=== PATIENT | male | born 1950 | race Caucasian/White ===

== ENCOUNTER 2017-08-28 18:35 | Emergency (ER) | payer MEDICARE, MEDICAID ==
[2017-08-28 18:43] VITALS: BP 235/86
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
[2017-08-28] MEDS ORDERED: NS 0.9% 1000 ML* 1,000 ML IV ONE (19:06)
--- OUTSIDE RECORDS SUMMARY | 2017-08-28 19:13 | XMS REPORT ---
:1950 External Reference #:[id number] Author Organization [facility] Address [address] [facility]/[address] [place] [address] Phone [phone] Care Team Providers Name Role Phone Mariya Betancourt MD Care Team Information Technical Support Director Unavailable Payers Type Date Identification Numbers Payment Provider Subscriber Medicare Primary Policy Number: [id number] Medicare Billy Barber PayID: [id number] [address] [place] [address] Medigap Part B Policy Number: [id number] Medicaid/[employer] Billy Barber PayID: [id number] [address] [place] [address] Problems Date Description Provider Status Onset: 09/22/2011 Benign essential hypertension Mariya Betancourt M.D. Active Onset: 09/22/2011 Mixed hyperlipidemia Mariya Betancourt M.D. Active Onset: 09/22/2011 Malaise and fatigue Mariya Betancourt M.D. Active Onset: 09/22/2011 Anxiety state Mariya Betancourt M.D. Active Onset: 09/22/2011 Type II diabetes mellitus uncontrolled Mariya Betancourt M.D. Active Onset: 09/22/2011 Chronic pancreatitis Mariya Betancourt M.D. Active Onset: 09/22/2011 Tobacco user Mariya Betancourt M.D. Active Onset: 09/22/2011 Depressive disorder Mariya Betancourt M.D. Active Onset: 09/22/2011 Peptic reflux disease Michael Motnoya [facility] Active Onset: 09/22/2011 Disease of liver Mariya Betancourt M.D. Active Onset: 09/22/2011 Arthralgia of the lower leg Mariya Betancourt M.D. Active Onset: 09/22/2011 Headache Michael Montoya [employer] Active Onset: 09/22/2011 Alcohol abuse Mariya Betancourt M.D. Active Onset: 09/21/2012 Osteoarthritis Mariya Betancourt M.D. Active Onset: 11/23/2012 Allergic rhinitis Mariya Betancourt M.D. Active Onset: 01/27/2014 Polyp of colon Sarah Lopez FNP Active Onset: 10/31/2014 Hearing loss Mariya Betancourt M.D. Active Onset: 04/03/2015 Essential hypertension Mariya Betancourt M.D. Active Onset: 04/03/2015 Major depressive disorder, single Mariya Betancourt M.D. Active episode, unspecified Onset: 04/03/2015 Alcohol abuse, uncomplicated Mariya Betancourt M.D. Active Onset: 05/01/2015 Essential hypertension Mariya Betancourt M.D. Active Family History Date Family Member(s) Problem(s) Comments Father due to Stomach Cancer () Father due to at age 83 () Mother healthy Mother 83 Children 2 First Son 39 First Son No Current Problems Second Son 37 Second Son No Current Problems Siblings 4 First Brother 60 First Brother No Current Problems Second Brother 56 Second Brother No Current Problems Third Brother 53 Third Brother No Current Problems First Sister 55 First Sister No Current Problems Social History Type Date Description Comments Marital Status Legal Status: Cigarette Use Current Cigarette Smoker pt has been smoking about 5 cigarettes a day since age 15 ETOH Use Currently consumes alcohol QUIT DRINKING 15 MONTHS AGO OF 05/27/17 Smoking Patient is a current smoker, smokes every day Daily Caffeine Consumes on average 1 cup of regular coffee per day Allergies, Adverse Reactions, Alerts Date Description Reaction Status Severity Comments 10/09/2011 NKDA active Medications Medication Date Status Form Strength Qnty SIG Indications Ordering Provider Celecoxib 08/29/ Active Capsules 100mg 180cap 1 cap by M25.511 Serafin, 2017 s mouth Mariya Hoskins, twice a M.D. day Polyethylene 02/27/ Active Powder 3350NF 1054un use 1-2 K59.00 Serafin, Glycol 3350 2015 its capfuls Ahmabruce MJessica, by mouth M.D. every day Spironolactone 01/16/ Active Tablets 25mg 90tabs take one R60.0 Serafin, 2016 tablet by Mariya Hoskins, mouth M.D. once daily K70.30 Folic Acid 03/01/2014 Active Tablets 400mcg 100tabs take one D52.0 Serafin, tablet by Mariya Etienne., mouth once M.D. daily Magnesium Oxide 03/01/2014 Active Tablets 400mg 90tabs take one R79.89 Serafin, tablet by Mariya Hoskins, mouth once M.D. daily K21.0 Lipitor 04/20/2013 Active Tablets 80mg 90tabs take one tablet E78.2 Serafin, Mariya Hoskins, by mouth at M.D. bedtime E11.65 I10 Omeprazole 12/24/[address] 40mg 90caps take one K21.0 Serafin, capsule Ahmad by mouth M., M.D. once daily Clonidine HCL 10/10/2011 Active Tablets 0.3mg 180tabs 1 by I10 Serafin, mouth Ahmad twice a M., M.D. day Fenofibrate 10/10/2011 Active Capsules 134mg 90caps take one E78.2 Serafin, Micronized capsule Ahmad by mouth M., M.D. every night Atenolol 10/10/2011 Active Tablets 100mg 180tabs take one I10 Serafin, tablet by Ahmad mouth M., M.D. twice a day Cephalexin 04/07/2017 - Hx Capsules 500mg 30caps 1 by L03.313 Serafin, 04/17/2017 mouth Ahmad three M., M.D. times a day Ciprofloxacin 01/15/2017 - Hx Tablets 500mg 20tabs 1 by I10 Serafin, HCL 01/25/2017 mouth Ahmad twice a M., M.D. day Zolpidem 11/27/2016 - Hx Tablets 10mg 30tabs 1 tab by G47.00 Serafin, Tartrate 08/06/2017 mouth Ahmad every M., M.D. night at bedtime Zoloft 08/29/2016 - Hx Tablets 100mg 30tabs 1 by F41.9 Serafin, 11/03/2016 mouth Ahmad every day Jaimie.Chandler M25.511 F33.9 Ciprofloxacin HCL 11/29/2015 - Hx Tablets 500mg 20tabs 1 by mouth Serafin, 12/10/2015 twice a day Ahmad M.GatoD. Prednisone 11/29/2015 - Hx Tablets 20mg 8tabs 2 tab by Serafin, 12/03/2015 mouth daily Ahmad M., 4 days M.D. Paxil 08/30/2015 - Hx Tablets 40mg 90tabs 1 tab by F41.9 Serafin, 10/07/2015 mouth every Ahmad M., day M.D. Testosterone 06/07/2015 - Hx Pellet 100mg E29.1 Serafin, 06/07/2015 Ahmad Jaimie.Chandler N64.4 N62 Testosterone 06/07/2015 - Hx Solution 200mg/ml 10ml one milliliters E29.1 Serafin, Cypionate 08/06/2015 intramuscular Ahmad M., every 2 weeks M.D. two vials code f N64.4 N62 Androgel 05/08/2015 - Hx Gel 25mg/2.5GM (1%) 75gm Apply To Clean E29.1 Serafin, 06/07/2015 Intact Ahmad M., Skin(Shoulder Or M.D. Abdomen) Q Am N64.4 N62 Venlafaxine HCL 10/31/2014 - Hx Tablets ER 150mg 90tabs 1 by mouth F41.9 Serafin, ER 08/06/2015 24HR every day Ahmad Cahndler Hoskins F32.9 Zolpidem 04/20/2014 - Hx Tablets 10mg 30tabs 1 tab by G47.00 Serafin, Tartrate 11/03/2016 mouth every Ahmad M., night at M.D. bedtime Paroxetine HCL 02/28/2014 - Hx Tablets 30mg 60tabs 1 twice a 300.00 Serafin, 10/31/2014 day Mariya Hoskins M.D. 311 Zetia 04/20/2013 - Hx Tablets 10mg 90tabs 1 [facility] every Chandler Hoskins night Liptruzet 04/14/2013 - Hx Tablets 10-80mg 30tabs 1 Tab PO 272.2 [facility] 04/20/2013 Qday Chandler Hoskins 250.02 401.1 Ritalin 11/30/2012 - Hx Tablets 20mg 30tabs 1 by mouth 780.79 [facility], 03/03/2013 every day Mariya Hoskins M.D. Amitriptyline HCL 02/25/2012 - Hx Tablets 50mg 60tabs 1 by mouth at 300.00 John, 03/13/2014 bedtime for 2 Sarah, weeks, then [employer] discontinue medication 311 Amoxicillin 01/13/2012 - Hx Capsules 500mg 30caps 1 three 382.9 [facility]2012 times a day Chandler Hoskins x 10 days 466.0 461.8 Prevacid 10/10/2011 - Hx Capsules DR 15mg 1 by mouth [facility] 12/24/2011 every day Chandler Hoskins Lotrel 10/10/2011 - Hx Capsules 10-40mg 180caps 1 cap by I10 Serafin [facility] 06/02/2016 mouth twice Chandler Hoskins a day E11.65 Hydralazine HCL 10/10/2011 - Hx Tablets 25mg 90tabs 1 PO tid 401.1 Serafin, 09/08/2013 Mariya Hoskins M.D. Tegretol 10/10/2011 - Hx Tablets 200mg 60tabs 1 twice a 300.00 Serafin, 10/04/2013 day Mariya Hoskins M.D. 305.00 Paroxetine HCL 10/10/2011 - Hx Tablets 30mg 60tabs 1 twice a 300.00 [facility] 10[facility] day Chandler Hoskins 311 Vytorin 10/10/2011 - Hx Tablets 10-40mg 30tabs 1 at 272.2 [facility], 04/14/2013 bedtime Mariya Hoskins M.D. Nortriptyline HCL 10/10/2011 - Hx Capsules 50mg 60caps 1 twice a 300.00 Serafin, 09/08/2013 day Mariya Hoskins M.D. 305.00 311 Protonix 10/09/2011 - Hx Tablets DR 40mg 30tabs 1 by mouth 536.8 [facility] , shaneka 12/24/2011 every day Chandler Hoskins Immunizations CPT Code Status Date Vaccine Lot # [id number] Given 05/01/2015 Flu Vaccine [id number] Given 04/20/2014 Flu Vaccine [id number] Given 06/10/2012 Flu Vaccine [id number] Vital Signs Date Vital Result Comment 08/26/2017 BP Systolic 120 mmHg BP Diastolic 62 mmHg Height 67 inches 5'7" Weight 165.00 lb BMI (Body Mass Index) 25.8 kg/m2 Heart Rate 57 /min Respiratory Rate 18 /min 05/27/2017 BP Systolic 108 mmHg BP Diastolic 68 mmHg Height 67 inches 5'7" Weight 168.00 lb BMI (Body Mass Index) 26.3 kg/m2 Heart Rate 57 /min Respiratory Rate 16 /min 04/07/2017 BP Systolic 110 mmHg BP Diastolic 60 mmHg Height 67 inches 5'7" Weight 171.00 lb BMI (Body Mass Index) 26.8 kg/m2 Heart Rate 58 /min Respiratory Rate 18 /min 02/26/2017 BP Systolic 128 mmHg BP Diastolic 62 mmHg Height 67 inches 5'7" Weight 168.00 lb BMI (Body Mass Index) 26.3 kg/m2 Heart Rate 55 /min Respiratory Rate 18 /min 01/15/2017 BP Systolic 140 mmHg BP Diastolic 74 mmHg Height 67 inches 5'7" Weight 167.00 lb BMI (Body Mass Index) 26.2 kg/m2 Heart Rate 54 /min Body Temperature 97.2 F Respiratory Rate 12 /min 12/12/2016 BP Systolic 150 mmHg BP Diastolic 62 mmHg Height 67 inches 5'7" Weight 167.00 lb BMI (Body Mass Index) 26.2 kg/m2 Heart Rate 49 /min Respiratory Rate 16 /min 11/27/2016 BP Systolic 138 mmHg BP Diastolic 78 mmHg Height 67 inches 5'7" Weight 169.00 lb BMI (Body Mass Index) 26.5 kg/m2 Heart Rate 54 /min Respiratory Rate 16 /min 08/29/2016 BP Systolic 148 mmHg BP Diastolic 78 mmHg Height 67 inches 5'7" Weight 172.00 lb BMI (Body Mass Index) 26.9 kg/m2 Heart Rate 50 /min Respiratory Rate 18 /min 06/02/2016 BP Systolic 162 mmHg BP Diastolic 80 mmHg Height 67 inches 5'7" Weight 174.00 lb BMI (Body Mass Index) 27.2 kg/m2 Heart Rate 57 /min Respiratory Rate 18 /min 03/03/2016 BP Systolic 122 mmHg BP Diastolic 64 mmHg Height 67 inches 5'7" Weight 167.00 lb BMI (Body Mass Index) 26.2 kg/m2 Heart Rate 86 /min Respiratory Rate 20 /min 02/28/2016 BP Systolic 150 mmHg BP Diastolic 80 mmHg Height 67 inches 5'7" Weight 170.00 lb BMI (Body Mass Index) 26.6 kg/m2 Heart Rate 68 /min Respiratory Rate 18 /min 01/31/2016 BP Systolic 136 mmHg BP Diastolic 74 mmHg Height 67 inches 5'7" Weight 192.00 lb BMI (Body Mass Index) 30.1 kg/m2 Heart Rate 80 /min Respiratory Rate 22 /min 01/17/2016 BP Systolic 160 mmHg BP Diastolic 110 mmHg Height 67 inches 5'7" Weight 196.00 lb BMI (Body Mass Index) 30.7 kg/m2 Heart Rate 92 /min Respiratory Rate 18 /min 11/29/2015 BP Systolic 124 mmHg BP Diastolic 82 mmHg Height 67 inches 5'7" Heart Rate 62 /min Body Temperature 96.9 F 10/24/2015 BP Systolic 159 mmHg BP Diastolic 71 mmHg Height 67 inches 5'7" Weight 177.00 lb BMI (Body Mass Index) 27.7 kg/m2 Heart Rate 53 /min Respiratory Rate 18 /min 08/30/2015 BP Systolic 146 mmHg BP Diastolic 71 mmHg Height 67 inches 5'7" Weight 188.00 lb BMI (Body Mass Index) 29.4 kg/m2 Heart Rate 85 /min Respiratory Rate 18 /min 06/07/2015 BP Systolic 145 mmHg BP Diastolic 70 mmHg Height 67 inches 5'7" Weight 194.00 lb BMI (Body Mass Index) 30.4 kg/m2 Heart Rate 60 /min Respiratory Rate 18 /min 05/08/2015 BP Systolic 192 mmHg BP Diastolic 82 mmHg Height 67 inches 5'7" Weight 198.00 lb BMI (Body Mass Index) 31.0 kg/m2 Heart Rate 53 /min Respiratory Rate 18 /min 05/01/2015 BP Systolic 193 mmHg BP Diastolic 79 mmHg Height 67 inches 5'7" Weight 196.00 lb BMI (Body Mass Index) 30.7 kg/m2 Heart Rate 57 /min Respiratory Rate 18 /min 04/03/2015 BP Systolic 198 mmHg BP Diastolic 98 mmHg Height 67 inches 5'7" Weight 182.00 lb BMI (Body Mass Index) 28.5 kg/m2 Heart Rate 68 /min Respiratory Rate 18 /min 12/08/2014 BP Systolic 162 mmHg BP Diastolic 88 mmHg Height 67 inches 5'7" Weight 203.00 lb BMI (Body Mass Index) 31.8 kg/m2 Heart Rate 61 /min Respiratory Rate 18 /min 10/31/2014 BP Systolic 162 mmHg BP Diastolic 80 mmHg Height 67 inches 5'7" Weight 203.00 lb BMI (Body Mass Index) 31.8 kg/m2 Heart Rate 60 /min Respiratory Rate 18 /min 09/28/2014 BP Systolic 172 mmHg BP Diastolic 82 mmHg BP Systolic Recheck 148 mmHg BP Diastolic Recheck 80 mmHg Height 67 inches 5'7" Weight 202.00 lb BMI (Body Mass Index) 31.6 kg/m2 Heart Rate 62 /min Respiratory Rate 18 /min 05/22/2014 BP Systolic 140 mmHg BP Diastolic 92 mmHg Height 67 inches 5'7" Weight 213.00 lb BMI (Body Mass Index) 33.4 kg/m2 Heart Rate 65 /min Respiratory Rate 18 /min 04/20/2014 BP Systolic 158 mmHg BP Diastolic 84 mmHg Height 67 inches 5'7" Weight 206.00 lb BMI (Body Mass Index) 32.3 kg/m2 Heart Rate 64 /min Respiratory Rate 20 /min 03/21/2014 BP Systolic 158 mmHg BP Diastolic 92 mmHg Height 67 inches 5'7" Weight 212.00 lb BMI (Body Mass Index) 33.2 kg/m2 Heart Rate 61 /min Respiratory Rate 18 /min 03/14/2014 BP Systolic 172 mmHg BP Diastolic 78 mmHg Height 67 inches 5'7" Weight 213.00 lb BMI (Body Mass Index) 33.4 kg/m2 Heart Rate 61 /min Respiratory Rate 18 /min 02/28/2014 BP Systolic 140 mmHg BP Diastolic 74 mmHg Height 67 inches 5'7" Weight 213.00 lb BMI (Body Mass Index) 33.4 kg/m2 Heart Rate 62 /min Respiratory Rate 18 /min 01/19/2014 BP Systolic 154 mmHg BP Diastolic 88 mmHg Height 67 inches 5'7" Weight 212.00 lb BMI (Body Mass Index) 33.2 kg/m2 Heart Rate 65 /min Respiratory Rate 22 /min 10/28/2013 BP Systolic 130 mmHg BP Diastolic 70 mmHg Height 67 inches 5'7" Weight 211.00 lb BMI (Body Mass Index) 33.0 kg/m2 Heart Rate 65 /min Body Temperature 97.2 F Respiratory Rate 18 /min 09/28/2013 BP Systolic 157 mmHg BP Diastolic 86 mmHg Height 67 inches 5'7" Weight 208.00 lb BMI (Body Mass Index) 32.6 kg/m2 Heart Rate 92 /min Respiratory Rate 20 /min 09/08/2013 BP Systolic 114 mmHg BP Diastolic 67 mmHg Height 67 inches 5'7" Weight 212.00 lb BMI (Body Mass Index) 33.2 kg/m2 Heart Rate 69 /min Respiratory Rate 20 /min 08/17/2013 BP Systolic 176 mmHg BP Diastolic 80 mmHg Height 67 inches 5'7" Weight 208.00 lb BMI (Body Mass Index) 32.6 kg/m2 Heart Rate 70 /min Respiratory Rate 24 /min 05/17/2013 BP Systolic 136 mmHg BP Diastolic 71 mmHg Height 67 inches 5'7" Weight 208.00 lb BMI (Body Mass Index) 32.6 kg/m2 Heart Rate 74 /min Body Temperature 97.8 F Respiratory Rate 22 /min 04/14/2013 BP Systolic 152 mmHg BP Diastolic 77 mmHg Height 67 inches 5'7" Weight 216.00 lb BMI (Body Mass Index) 33.8 kg/m2 Heart Rate 62 /min Respiratory Rate 22 /min 04/07/2013 BP Systolic 153 mmHg BP Diastolic 82 mmHg Height 67 inches 5'7" Weight 216.00 lb BMI (Body Mass Index) 33.8 kg/m2 Heart Rate 79 /min 03/03/2013 BP Systolic 128 mmHg BP Diastolic 66 mmHg Height 67 inches 5'7" Weight 211.00 lb BMI (Body Mass Index) 33.0 kg/m2 Heart Rate 70 /min Respiratory Rate 18 /min 11/30/2012 BP Systolic 144 mmHg BP Diastolic 70 mmHg Height 67 inches 5'7" Weight 206.00 lb BMI (Body Mass Index) 32.3 kg/m2 Heart Rate 73 /min Respiratory Rate 20 /min 11/23/2012 BP Systolic 120 mmHg BP Diastolic 64 mmHg Height 67 inches 5'7" Weight 210.00 lb BMI (Body Mass Index) 32.9 kg/m2 Heart Rate 78 /min Respiratory Rate 20 /min 09/21/2012 BP Systolic 160 mmHg BP Diastolic 88 mmHg Height 67 inches 5'7" Weight 205.00 lb BMI (Body Mass Index) 32.1 kg/m2 Heart Rate 78 /min Respiratory Rate 12 /min 09/14/2012 BP Systolic 148 mmHg BP Diastolic 80 mmHg Height 67 inches 5'7" Weight 208.00 lb BMI (Body Mass Index) 32.6 kg/m2 Heart Rate 67 /min Body Temperature 96.9 F Respiratory Rate 18 /min 06/10/2012 BP Systolic 120 mmHg BP Diastolic 74 mmHg Height 67 inches 5'7" Weight 203.00 lb BMI (Body Mass Index) 31.8 kg/m2 Heart Rate 69 /min Respiratory Rate 20 /min 04/19/2012 BP Systolic 170 mmHg BP Diastolic 88 mmHg Height 67 inches 5'7" Weight 190.00 lb BMI (Body Mass Index) 29.8 kg/m2 Heart Rate 72 /min Respiratory Rate 24 /min 03/31/2012 BP Systolic 145 mmHg BP Diastolic 77 mmHg Height 67 inches 5'7" Weight 220.00 lb BMI (Body Mass Index) 34.5 kg/m2 Heart Rate 75 /min Last Menstrual Period 0 Respiratory Rate 15 /min 02/19/2012 BP Systolic 144 mmHg BP Diastolic 67 mmHg Height 67 inches 5'7" Weight 220.00 lb BMI (Body Mass Index) 34.5 kg/m2 Heart Rate 76 /min Last Menstrual Period 0 Respiratory Rate 14 /min 02/05/2012 BP Systolic 145 mmHg BP Diastolic 76 mmHg Height 67 inches 5'7" Weight 220.00 lb BMI (Body Mass Index) 34.5 kg/m2 Heart Rate 80 /min Last Menstrual Period 0 Respiratory Rate 15 /min 01/13/2012 BP Systolic 150 mmHg BP Diastolic 92 mmHg Height 67 inches 5'7" Weight 200.00 lb BMI (Body Mass Index) 31.3 kg/m2 Heart Rate 90 /min Last Menstrual Period 0 Respiratory Rate 16 /min 11/04/2011 BP Systolic 136 mmHg BP Diastolic 76 mmHg Height 67 inches 5'7" Weight 194.00 lb BMI (Body Mass Index) 30.4 kg/m2 Heart Rate 70 /min Last Menstrual Period 0 Respiratory Rate 15 /min 10/28/2011 BP Systolic 150 mmHg BP Diastolic 87 mmHg Height 67 inches 5'7" Weight 198.00 lb BMI (Body Mass Index) 31.0 kg/m2 Heart Rate 78 /min Last Menstrual Period 0 Respiratory Rate 14 /min 10/09/2011 BP Systolic 137 mmHg BP Diastolic 76 mmHg Height 67 inches 5'7" Weight 199.00 lb BMI (Body Mass Index) 31.2 kg/m2 Heart Rate 64 /min Last Menstrual Period 0 Respiratory Rate 15 /min Results Test Date Test Result H/L Range Note CBC Auto Diff 05/27/2017 White Blood Count 6.4 10^3/uL 3.5-10.8 Red Blood Count 4.41 10^6/uL 4.0-5.4 Hemoglobin 13.3 g/dL Low 14.0-18.0 Hematocrit 40 % Low 42-52 Mean Corpuscular Volume 91 fL 80-94 Mean Corpuscular Hemoglobin 30 pg 27-31 Mean Corpuscular HGB Conc 33 g/dL 31-36 Red Cell Distribution Width 14 % 10.5-15 Platelet Count 257 10^3/uL 150-450 Mean Platelet Volume 9 um3 7.4-10.4 Abs Neutrophils 3.0 10^3/uL 1.5-7.7 Abs Lymphocytes 2.5 10^3/uL 1.0-4.8 Abs Monocytes 0.6 10^3/uL 0-0.8 Abs Eosinophils 0.3 10^3/uL 0-0.6 Abs Basophils 0.1 10^3/uL 0-0.2 Abs Nucleated RBC 0 10^3/uL Granulocyte % 46.8 % 38-83 Lymphocyte % 38.7 % 25-47 Monocyte % 8.9 % 1-9 Eosinophil % 4.6 % 0-6 Basophil % 1.0 % 0-2 Nucleated Red Blood Cells % 0.1 Comp Metabolic Panel 05/27/2017 Sodium 136 mmol/L 133-145 Potassium 4.1 mmol/L 3.5-5.0 Chloride 102 mmol/L 101-111 Co2 Carbon Dioxide 28 mmol/L 22-32 Anion Gap 6 mmol/L 2-11 Glucose 132 mg/dL High 70-100 Blood Urea Nitrogen 29 mg/dL High 6-24 Creatinine 1.44 mg/dL High 0.67-1.17 BUN/Creatinine Ratio 20.1 High 8-20 Calcium 10.1 mg/dL 8.6-10.3 Total Protein 7.2 g/dL 6.4-8.9 Albumin 4.5 g/dL 3.2-5.2 Globulin 2.7 g/dL 2-4 Albumin/Globulin Ratio 1.7 1-3 Total Bilirubin 0.70 mg/dL 0.2-1.0 Alkaline Phosphatase 74 U/L 34-104 Alt 10 U/L 7-52 Ast 19 U/L 13-39 Egfr Non- 49.1 >60 Egfr 63.1 >60 1 Lipid Profile (Trig/Chol/HDL) 05/27/2017 Triglycerides 73 mg/dL 2 Cholesterol 129 mg/dL 3 HDL Cholesterol 34.2 mg/dL 4 LDL Cholesterol 80 mg/dL 5 Laboratory test finding 05/27/2017 Hemoglobin A1c (Glyco HGB) 5.3 % 4.0- 5.6 6 TSH (Thyroid Stim Horm) 0.98 mcIU/mL 0.34-5.60 7 Urine Microalbumin Random 05/27/2017 Ur Microalbumin (mg/L) < 15.0 mg/L Urine Creatinine 220.85 mg/dL Urine Microalbumin/Creatinine TNP ug/mg <31 8 CBC Auto Diff 02/26/2017 White Blood Count 6.2 10^3/uL 3.5-10.8 Red Blood Count 4.09 10^6/uL 4.0-5.4 Hemoglobin 12.4 g/dL Low 14.0-18.0 Hematocrit 37 % Low 42-52 Mean Corpuscular Volume 91 fL 80-94 Mean Corpuscular Hemoglobin 30 pg 27-31 Mean Corpuscular HGB Conc 33 g/dL 31-36 Red Cell Distribution Width 15 % 10.5-15 Platelet Count 225 10^3/uL 150-450 Mean Platelet Volume 9 um3 7.4-10.4 Abs Neutrophils 3.2 10^3/uL 1.5-7.7 Abs Lymphocytes 2.0 10^3/uL 1.0-4.8 Abs Monocytes 0.6 10^3/uL 0-0.8 Abs Eosinophils 0.3 10^3/uL 0-0.6 Abs Basophils 0.1 10^3/uL 0-0.2 Abs Nucleated RBC 0.01 10^3/uL Granulocyte % 52.2 % 38-83 Lymphocyte % 31.8 % 25-47 Monocyte % 9.5 % High 1-9 Eosinophil % 5.5 % 0-6 Basophil % 1.0 % 0-2 Nucleated Red Blood Cells % 0.2 Comp Metabolic Panel 02/26/2017 Sodium 139 mmol/L 133-145 Potassium 4.4 mmol/L 3.5-5.0 Chloride 107 mmol/L 101-111 Co2 Carbon Dioxide 26 mmol/L 22-32 Anion Gap 6 mmol/L 2-11 Glucose 117 mg/dL High 70-100 Blood Urea Nitrogen 21 mg/dL 6-24 Creatinine 1.24 mg/dL High 0.67-1.17 BUN/Creatinine Ratio 16.9 8-20 Calcium 9.7 mg/dL 8.6-10.3 Total Protein 6.8 g/dL 6.4-8.9 Albumin 4.2 g/dL 3.2-5.2 Globulin 2.6 g/dL 2-4 Albumin/Globulin Ratio 1.6 1-3 Total Bilirubin 0.50 mg/dL 0.2-1.0 Alkaline Phosphatase 73 U/L 34-104 Alt 10 U/L 7-52 Ast 20 U/L 13-39 Egfr Non- 58.3 >60 Egfr 75.0 >60 9 Laboratory test 02/26/2017 TSH (Thyroid Stim Horm) 0.90 mcIU/mL 0.34- 5.60 10 finding Lipid Profile 02/26/2017 Triglycerides 96 mg/dL 11 (Trig/Chol/HDL) Cholesterol 115 mg/dL 12 HDL Cholesterol 34.4 mg/dL 13 LDL Cholesterol 61 mg/dL 14 Laboratory test finding 02/26/2017 Folic Acid (Folate) > 20.00 ng/mL & gt;3.99 15 Vitamin D Total 25(Oh) 9.1 ng/mL Low 30-50 16 Hemoglobin A1c (Glyco HGB) 5.6 % Less than 6.0 17 Laboratory test finding 01/15/2017 Erythrocyte Sed Rate 34 mm/Hr 0-40 Lipase 49 U/L 11.0-82.0 Comp Metabolic Panel 01/15/2017 Sodium 133 mmol/L 133-145 Potassium 4.4 mmol/L 3.5-5.0 Chloride 101 mmol/L 101-111 Co2 Carbon Dioxide 19 mmol/L Low 22-32 Anion Gap 13 mmol/L High 2-11 Glucose 127 mg/dL High 70-100 Blood Urea Nitrogen 27 mg/dL High 6-24 Creatinine 1.62 mg/dL High 0.67-1.17 BUN/Creatinine Ratio 16.7 8-20 Calcium 10.2 mg/dL 8.6-10.3 Total Protein 7.9 g/dL 6.4-8.9 Albumin 4.6 g/dL 3.2-5.2 Globulin 3.3 g/dL 2-4 Albumin/Globulin Ratio 1.4 1-3 Total Bilirubin 1.20 mg/dL High 0.2-1.0 Alkaline Phosphatase 78 U/L 34-104 Alt 15 U/L 7-52 Ast 24 U/L 13-39 Egfr Non- 42.8 >60 Egfr 55.1 >60 18 CBC Auto Diff 01/15/2017 White Blood Count 9.8 10^3/uL 3.5-10.8 Red Blood Count 4.82 10^6/uL 4.0-5.4 Hemoglobin 15.0 g/dL 14.0-18.0 Hematocrit 45 % 42-52 Mean Corpuscular Volume 93 fL 80-94 Mean Corpuscular Hemoglobin 31 pg 27-31 Mean Corpuscular HGB Conc 34 g/dL 31-36 Red Cell Distribution Width 14 % 10.5-15 Platelet Count 256 10^3/uL 150-450 Mean Platelet Volume 10 um3 7.4-10.4 Abs Neutrophils 8.1 10^3/uL High 1.5-7.7 Abs Lymphocytes 1.4 10^3/uL 1.0-4.8 Abs Monocytes 0.2 10^3/uL 0-0.8 Abs Eosinophils 0 10^3/uL 0-0.6 Abs Basophils 0 10^3/uL 0-0.2 Abs Nucleated RBC 0 10^3/uL Granulocyte % 82.6 % 38-83 Lymphocyte % 14.4 % Low 25-47 Monocyte % 2.5 % 1-9 Eosinophil % 0 % 0-6 Basophil % 0.5 % 0-2 Nucleated Red Blood Cells % 0 Laboratory test 11/27/2016 TSH (Thyroid Stim Horm) 1.14 mcIU/mL 0.34- 5.60 19 finding Lipid Profile 11/27/2016 Triglycerides 52 mg/dL 20 (Trig/Chol/HDL) Cholesterol 119 mg/dL 21 HDL Cholesterol 39.8 mg/dL 22 LDL Cholesterol 69 mg/dL 23 Laboratory test finding 11/27/2016 Magnesium 1.6 mg/dL Low 1.9-2.7 24 Hemoglobin A1c (Glyco HGB) 5.4 % Less than 6.0 25 Folic Acid (Folate) > 20.00 ng/mL >3.99 26 Vitamin B12 225 pg/mL 180-914 27 Hepatitis C Antibody Nonreactive Nonreactive 28 Vitamin D Total 25(Oh) 14.4 ng/mL Low 30-50 29 Comp Metabolic Panel 11/27/2016 Sodium 136 mmol/L 133-145 Potassium 4.5 mmol/L 3.5-5.0 Chloride 104 mmol/L 101-111 Co2 Carbon Dioxide 27 mmol/L 22-32 Anion Gap 5 mmol/L 2-11 Glucose 137 mg/dL High 70-100 Blood Urea Nitrogen 28 mg/dL High 6-24 Creatinine 1.36 mg/dL High 0.67-1.17 BUN/Creatinine Ratio 20.6 High 8-20 Calcium 9.9 mg/dL 8.6-10.3 Total Protein 6.9 g/dL 6.4-8.9 Albumin 4.1 g/dL 3.2-5.2 Globulin 2.8 g/dL 2-4 Albumin/Globulin Ratio 1.5 1-3 Total Bilirubin 0.60 mg/dL 0.2-1.0 Alkaline Phosphatase 73 U/L 34-104 Alt 10 U/L 7-52 Ast 19 U/L 13-39 Egfr Non- 52.4 >60 Egfr 67.4 >60 30 CBC Auto Diff 11/27/2016 White Blood Count 6.8 10^3/uL 3.5-10.8 Red Blood Count 4.02 10^6/uL 4.0-5.4 Hemoglobin 12.2 g/dL Low 14.0-18.0 Hematocrit 37 % Low 42-52 Mean Corpuscular Volume 93 fL 80-94 Mean Corpuscular Hemoglobin 30 pg 27-31 Mean Corpuscular HGB Conc 33 g/dL 31-36 Red Cell Distribution Width 14 % 10.5-15 Platelet Count 220 10^3/uL 150-450 Mean Platelet Volume 9 um3 7.4-10.4 Abs Neutrophils 3.3 10^3/uL 1.5-7.7 Abs Lymphocytes 2.4 10^3/uL 1.0-4.8 Abs Monocytes 0.7 10^3/uL 0-0.8 Abs Eosinophils 0.4 10^3/uL 0-0.6 Abs Basophils 0.1 10^3/uL 0-0.2 Abs Nucleated RBC 0 10^3/uL Granulocyte % 48.8 % 38-83 Lymphocyte % 34.7 % 25-47 Monocyte % 10.1 % High 1-9 Eosinophil % 5.6 % 0-6 Basophil % 0.8 % 0-2 Nucleated Red Blood Cells % 0 Laboratory test 03/03/2016 Alcohol < 10 mg/dL <10 31, 32 finding Laboratory test 01/05/2016 Lactic Acid 4.9 mmol/L High 0.5-2.0 33 finding Type & Screen 01/05/2016 Patient Blood Type B Positive Antibody Screen NEGATIVE Laboratory test finding 01/05/2016 Magnesium 1.2 mg/dL Low 1.9-2.7 Lipase 28 U/L 11.0-82.0 C Reactive Protein 9.90 mg/L High < 5.00 34 Stool Occult Blood SEE RESULT BELOW 35 Comp Metabolic Panel 01/05/2016 Sodium 138 mmol/L 133-145 Potassium 3.4 mmol/L Low 3.5-5.0 Chloride 97 mmol/L Low 101-111 Co2 Carbon Dioxide 26 mmol/L 22-32 Anion Gap 15 mmol/L High 2-11 Glucose 115 mg/dL High 70-100 Blood Urea Nitrogen 6 mg/dL 6-24 Creatinine 0.95 mg/dL 0.67-1.17 BUN/Creatinine Ratio 6.3 Low 8-20 Calcium 8.6 mg/dL 8.6-10.3 Total Protein 7.1 g/dL 6.4-8.9 Albumin 2.7 g/dL Low 3.2-5.2 Globulin 4.4 g/dL High 2-4 Albumin/Globulin Ratio 0.6 Low 1-3 Total Bilirubin 8.30 mg/dL High 0.2-1.0 Alkaline Phosphatase 377 U/L High 34-104 Alt 53 U/L High 7-52 Ast 214 U/L High 13-39 Egfr Non- 79.6 >60 Egfr 102.3 >60 36 Laboratory test finding 01/05/2016 Ammonia 98 ?mol/L High 16-53 Urinalysis Profile 01/05/2016 Urine Color K[place] Urine Appearance Cloudy Urine Specific [place] 1.025 1.010-1.030 Urine pH 5.0 5-9 Urine Urobilinogen Positive Negative Urine Ketones Trace Negative Urine Protein 1+(30 mg/dL) Negative Urine Leukocytes Negative Negative Urine Blood Negative Negative Urine Nitrite Negative Negative Urine Bilirubin 2+ Negative Urine Glucose Negative Negative Urine White Blood Cell 1+(6-10/hpf) Absent Urine Red Blood Cell Absent Absent Urine Bacteria Absent Absent Urine Squamous Epithelial Cell Present Absent Urine Hyaline Casts Present Absent Inr/Protime 01/05/2016 Inr 1.69 High 0.89-1.11 CBC Auto Diff 01/05/2016 White Blood Count 11.0 10^3/uL High 3.5-10.8 Red Blood Count 3.56 10^6/uL Low 4.0-5.4 Hemoglobin 11.9 g/dL Low 14.0-18.0 Hematocrit 35 % Low 42-52 Mean Corpuscular Volume 98 fL High 80-94 Mean Corpuscular Hemoglobin 33 pg High 27-31 Mean Corpuscular HGB Conc 34 g/dL 31-36 Red Cell Distribution Width 17 % High 10.5-15 Platelet Count 169 10^3/uL 150-450 Mean Platelet Volume 9 um3 7.4-10.4 Abs Neutrophils 8.9 10^3/uL High 1.5-7.7 Abs Lymphocytes 0.7 10^3/uL Low 1.0-4.8 Abs Monocytes 1.2 10^3/uL High 0-0.8 Abs Eosinophils 0 10^3/uL 0-0.6 Abs Basophils 0.1 10^3/uL 0-0.2 Abs Nucleated RBC 0 10^3/uL Granulocyte % 81.5 % 38-83 Lymphocyte % 6.8 % Low 25-47 Monocyte % 10.8 % High 1-9 Eosinophil % 0 % 0-6 Basophil % 0.9 % 0-2 Nucleated Red Blood Cells % 0 CBC Auto Diff 08/30/2015 White Blood Count 3.5 10^3/uL 3.5-10.8 Red Blood Count 3.97 10^6/uL Low 4.0-5.4 Hemoglobin 12.8 g/dL Low 14.0-18.0 Hematocrit 38 % Low 42-52 Mean Corpuscular Volume 97 fL High 80-94 Mean Corpuscular Hemoglobin 32 pg High 27-31 Mean Corpuscular HGB Conc 33 g/dL 31-36 Red Cell Distribution Width 18 % High 10.5-15 Platelet Count 146 10^3/uL Low 150-450 Mean Platelet Volume 9 um3 7.4-10.4 Abs Neutrophils 2.1 10^3/uL 1.5-7.7 Abs Lymphocytes 0.8 10^3/uL Low 1.0-4.8 Abs Monocytes 0.3 10^3/uL 0-0.8 Abs Eosinophils 0.1 10^3/uL 0-0.6 Abs Basophils 0.2 10^3/uL 0-0.2 Abs Nucleated RBC 0 10^3/uL Granulocyte % 60.4 % 38-83 Lymphocyte % 23.7 % Low 25-47 Monocyte % 9.1 % High 1-9 Eosinophil % 2.6 % 0-6 Basophil % 4.2 % High 0-2 Nucleated Red Blood Cells % 0.1 Comp Metabolic Panel 08/30/2015 Sodium 131 mmol/L Low 133-145 Potassium 4.3 mmol/L 3.5-5.0 Chloride 100 mmol/L Low 101-111 Co2 Carbon Dioxide 23 mmol/L 22-32 Anion Gap 8 mmol/L 2-11 Glucose 117 mg/dL High 70-100 Blood Urea Nitrogen 11 mg/dL 6-24 Creatinine 1.11 mg/dL 0.67-1.17 BUN/Creatinine Ratio 9.9 8-20 Calcium 9.1 mg/dL 8.6-10.3 Total Protein 7.5 g/dL 6.4-8.9 Albumin 3.7 g/dL 3.2-5.2 Globulin 3.8 g/dL 2-4 Albumin/Globulin Ratio 1.0 1-3 Total Bilirubin 1.30 mg/dL High 0.2-1.0 Alkaline Phosphatase 108 U/L High 34-104 Alt 28 U/L 7-52 Ast 67 U/L High 13-39 Egfr Non- 66.7 >60 Egfr 85.8 >60 37 Laboratory test finding 08/30/2015 CRP High Sensitivity 1.50 mg/L 38 Lipid Profile (Trig/Chol/HDL) 08/30/2015 Triglycerides 69 mg/dL 39 Cholesterol 169 mg/dL 40 HDL Cholesterol 67.5 mg/dL 41 LDL Cholesterol 88 mg/dL 42 Laboratory test finding 08/30/2015 TSH (Thyroid Stim Horm) 1.41 ?IU/mL 0.34-5.60 Magnesium 1.7 mg/dL Low 1.9-2.7 Hemoglobin A1c (Glyco HGB) 5.1 % Less than 6.0 43 Folic Acid (Folate) 12.45 ng/mL >3.99 Vitamin B12 433 pg/mL 180-914 44 CBC W/Automated Diff 05/01/2015 White Blood Count 5.4 K/uL 3.4-10.5 Red Blood Count 4.10 M/uL Low 4.20-5.80 Hemoglobin 13.8 gm/dL 12.8-17.0 Hematocrit 41.7 % 38.0-48.0 Mean Cell Volume 101.7 fl High 80.0-96.0 Mean Corpuscular HGB 33.7 pg High 27.0-33.0 Mean Corpuscular HGB Conc 33.1 g/dL 31.7-36.0 Platelet Count 187 K/uL 150-400 Red Cell Distri Width SD 51.2 fl High 36-51 Red Cell Distri Width %CV 14.2 % 11.6-15.8 Mean Platelet Volume 10.8 fL High 6.6-10.6 Neut# 3.73 K/uL 1.8-7.0 Lymph # 0.88 K/uL Low 1.8-7.0 Crowley # 0.58 K/uL 0.0-0.8 Eos # 0.10 K/uL 0.0-0.5 Baso # 0.06 K/uL Low 0.1-0.2 Comprehensive Metabolic Panel 05/01/2015 Glucose 121 mg/dL High 74-106 BUN 8 mg/dL 7-18 Creatinine 0.9 mg/dL 0.6-1.3 Glom Filtration Rate, Estimate >60 mL/min >60 If >60 mL/min >60 45 BUN/Creat 8.8 ratio Sodium 136 mmol/L 136-145 Potassium 3.4 mmol/L Low 3.5-5.1 Chloride 100 mmol/L 98-107 Carbon Dioxide 27 mmol/L 21-32 Anion Gap 9 mEq/L 8-16 Calcium 8.5 mg/dL 8.5-10.1 Total Protein 8.2 g/dL 6.4-8.2 Albumin 3.6 g/dL 3.4-5.0 Globulin 4.6 g/dL High 1.9-4.3 Alb/Glob 0.8 ratio Bilirubin,Total 1.4 mg/dL High 0.2-1.0 Sgot/Ast 55 U/L High 15-37 SGPT/Alt 29 U/L 12-78 Alkaline Phosphatase 141 U/L High 45-117 Glycohemoglobin A1c 05/01/2015 Glycohemoglobin (A1c) 5.4 % 4.2-6.3 46 eAG 108 mg/dL Laboratory test 05/01/2015 C-Reactive Protein,Cardiac 3.75 mg/L <3.0 finding LDL Cholesterol 05/01/2015 Cholesterol 210 mg/dL High <200 47 Profile Triglycerides 104 mg/dL <150 48 HDL Cholesterol 79 mg/dL >40 49 LDL-Cholesterol 110 mg/dL < 100 50 Laboratory test finding 05/01/2015 Thyroid Stim Hormone 1.40 uIU/mL 0.36- 3.74 Magnesium 1.5 mg/dL Low 1.8-2.4 Vitamin B12 And Folate 05/01/2015 Vitamin B12 491 pg/mL 193-986 Folic Acid 12.8 ng/mL 3.1-17.5 Differential WBC Confirm 05/01/2015 Total Cells Counted 100 #CELLS Band% 3 % 0-8 Neutrophils% 63 % 33-73 Lymph% 28 % 17-56 Monocyte% 4 % 0-10 Eosinophil% 1 % 0-5 Basophil% 1 % 0-2 Platelet Estimate NORMAL RBC Morphology NORMAL CBC W/Automated Diff 10/31/2014 White Blood Count 5.8 K/uL 3.4-10.5 Red Blood Count 3.93 M/uL Low 4.20-5.80 Hemoglobin 13.8 gm/dL 12.8-17.0 Hematocrit 40.2 % 38.0-48.0 Mean Cell Volume 102.3 fl High 80.0-96.0 Mean Corpuscular HGB 35.1 pg High 27.0-33.0 Mean Corpuscular HGB Conc 34.3 g/dL 31.7-36.0 Platelet Count 169 K/uL 150-400 Red Cell Distri Width SD 54.5 fl High 36-51 Red Cell Distri Width %CV 14.6 % 11.6-15.8 Mean Platelet Volume 10.4 fL 6.6-10.6 Neut% 73.9 % High 33.0-73.0 Lymph % 13.6 % Low 17.0-56.0 Crowley % 9.9 % 0.0-10.0 Eo% 1.7 % 0.0-5.0 Bas% 0.9 % 0.1-1.0 Neut# 4.31 K/uL 1.8-7.0 Lymph # 0.79 K/uL Low 1.8-7.0 Crowley # 0.58 K/uL 0.0-0.8 Eos # 0.10 K/uL 0.0-0.5 Baso # 0.05 K/uL Low 0.1-0.2 Comprehensive Metabolic Panel 10/31/2014 Glucose 127 mg/dL High 74-106 BUN 7 mg/dL 7-18 Creatinine 1.2 mg/dL 0.6-1.3 Glom Filtration Rate, Estimate >60 mL/min >60 If >60 mL/min >60 51 BUN/Creat 5.8 ratio Sodium 138 mmol/L 136-145 Potassium 4.0 mmol/L 3.5-5.1 Chloride 98 mmol/L 98-107 Carbon Dioxide 32 mmol/L 21-32 Anion Gap 8 mEq/L 8-16 Calcium 8.9 mg/dL 8.5-10.1 Total Protein 7.8 g/dL 6.4-8.2 Albumin 3.6 g/dL 3.4-5.0 Globulin 4.2 g/dL 1.9-4.3 Alb/Glob 0.9 ratio Bilirubin,Total 1.7 mg/dL High 0.2-1.0 Sgot/Ast 114 U/L High 15-37 SGPT/Alt 61 U/L 12-78 Alkaline Phosphatase 177 U/L High 45-117 Laboratory test finding 10/31/2014 Free T4 1.00 ng/dL 0.76-1.46 Vitamin D,1,25 Dihydroxy 35.5 pg/mL 19.9-79.3 52 Glycohemoglobin A1c 10/31/2014 Glycohemoglobin (A1c) 5.5 % 4.2-6.3 53 eAG 111 mg/dL Laboratory test finding 10/31/2014 Thyroid Stim Hormone 1.07 uIU/mL 0.36- 3.74 Magnesium 1.2 mg/dL Low 1.8-2.4 Prostate Specific Antigen 3.20 ng/mL 54 LDL Cholesterol Profile 10/31/2014 Cholesterol 188 mg/dL < 200 55 Triglycerides 108 mg/dL < 150 56 HDL Cholesterol 62 mg/dL > 40 57 LDL-Cholesterol 104 mg/dL < 100 58 Laboratory test finding 10/31/2014 C-Reactive Protein,Cardiac 6.13 mg/L & lt;3.0 Sedimentation Rate 24 mm/hr High 0-20 Amylase 26 U/L 25-115 Lipase 205 U/L 73-393 Vitamin B12 And Folate 02/28/2014 Vitamin B12 481 pg/mL 200-900 Folic Acid 5.0 ng/mL Low 6.0-15.4 Comprehensive Metabolic Panel 02/28/2014 Glucose 97 mg/dL 76-115 BUN 15 mg/dL 5-23 Creatinine 1.5 mg/dL High 0.5-1.4 Glom Filtration Rate, Estimate 50 mL/min >60 If >60 mL/min >60 59 BUN/Creat 10.0 ratio Sodium 129 mmol/L Low 136-145 Potassium 5.0 mmol/L 3.5-5.1 Chloride 95 mmol/L Low 98-107 Carbon Dioxide 27 mEq/L 18-29 Anion Gap 12 mEq/L 8-16 Calcium 9.0 mg/dL 8.5-10.1 Total Protein 7.7 g/dL 6.3-8.0 Albumin 4.1 g/dL 3.5-5.0 Globulin 3.6 g/dL 1.9-4.3 Alb/Glob 1.1 ratio Bilirubin,Total 0.6 mg/dL 0.2-1.2 Sgot/Ast 98 U/L High 16-40 SGPT/Alt 67 U/L High 30-65 Alkaline Phosphatase 100 U/L 50-136 CBC W/Automated Diff 02/28/2014 White Blood Count 6.8 K/uL 3.4-10.5 Red Blood Count 4.07 M/uL Low 4.20-5.80 Hemoglobin 14.1 gm/dL 12.8-17.0 Hematocrit 42.0 % 38.0-48.0 Mean Cell Volume 103.2 fl High 80.0-96.0 Mean Corpuscular HGB 34.6 pg High 27.0-33.0 Mean Corpuscular HGB Conc 33.6 g/dL 31.7-36.0 Platelet Count 275 K/uL 150-400 Red Cell Distri Width SD 49.8 fl 36-51 Red Cell Distri Width %CV 13.4 % 11.6-15.8 Mean Platelet Volume 9.6 fL 6.6-10.6 Neut% 73.4 % High 33.0-73.0 Lymph % 13.7 % Low 17.0-56.0 Crowley % 9.0 % 0.0-10.0 Eo% 2.7 % 0.0-5.0 Bas% 1.2 % High 0.1-1.0 Neut# 4.99 K/uL 1.8-7.0 Lymph # 0.93 K/uL Low 1.2-4.0 Crowley # 0.61 K/uL High 0.0-0.6 Eos # 0.18 K/uL 0.0-0.5 Baso # 0.08 K/uL Low 0.1-0.2 LDL Cholesterol Profile 02/28/2014 Cholesterol 225 mg/dL High 120-200 Triglycerides 123 mg/dL 16-231 HDL Cholesterol 63 mg/dL 29-83 LDL-Cholesterol 137 mg/dL 62-185 Laboratory test finding 02/28/2014 Magnesium 1.3 mg/dL Low 1.7-2.3 Surgical Pathology 12/02/2013 S RUN DATE: 12/05/ <SEE 60 NOTE> Basic Metabolic Panel 09/28/2013 Sodium 130 mmol/L Low 133-145 Potassium 5.0 mmol/L 3.7-5.6 Chloride 95 mmol/L Low 101-111 Co2 Carbon Dioxide 25 mmol/L 22-32 Anion Gap 10 mmol/L 2-11 Glucose 119 mg/dL High 70-100 Blood Urea Nitrogen 15 mg/dL 6-24 Creatinine 1.58 mg/dL High 0.67-1.17 BUN/Creatinine Ratio 9.5 8-20 Calcium 10.4 mg/dL High 8.6-10.3 Egfr Non- 44.5 >60 Egfr 57.3 >60 61 CBC Auto Diff 09/28/2013 White Blood Count 7.7 10^3/uL 4.8-10.8 Red Blood Count 4.22 10^6/uL 4.0-5.4 Hemoglobin 14.5 g/dL 14.0-18.0 Hematocrit 42 % 42-52 Mean Corpuscular Volume 101 fL High 80-94 Mean Corpuscular Hemoglobin 35 pg High 27-31 Mean Corpuscular HGB Conc 34 g/dL 31-36 Red Cell Distribution Width 13 % 10.5-15 Platelet Count 318 10^3/uL 150-450 Mean Platelet Volume 7 um3 Low 7.4-10.4 Abs Neutrophils 6.1 10^3/uL 1.5-7.7 Abs Lymphocytes 0.9 10^3/uL Low 1.0-4.8 Abs Monocytes 0.5 10^3/uL 0-0.8 Abs Eosinophils 0.1 10^3/uL 0-0.6 Abs Basophils 0.1 10^3/uL 0-0.2 Abs Nucleated RBC 0 10^3/uL Granulocyte % 79.5 % 38-83 Lymphocyte % 11.6 % Low 25-47 Monocyte % 6.9 % 1-9 Eosinophil % 1.2 % 0-6 Basophil % 0.8 % 0-2 Nucleated Red Blood Cells % 0 Laboratory test finding 09/28/2013 CRP High Sensitivity 1.43 mg/L 62 Erythrocyte Sed Rate 19 mm/Hr 0-20 Lipid Profile (Trig/Chol/HDL) 09/28/2013 Triglycerides 167 mg/dL 63 Cholesterol 330 mg/dL 64 HDL Cholesterol 79.6 mg/dL 65 LDL Cholesterol 217 mg/dL 66 Liver Function Panel 09/28/2013 Total Protein 8.5 g/dL 6.4-8.9 Albumin 5.2 g/dL 3.2-5.2 Globulin 3.3 g/dL 2-4 Albumin/Globulin Ratio 1.6 1-3 Total Bilirubin 0.70 mg/dL 0.2-1.0 Direct Bilirubin 0.20 mg/dL High 0.03-0.18 Indirect Bilirubin 0.5 mg/dL 0.3-1.0 Alkaline Phosphatase 62 U/L 34-104 Alt 46 U/L 7-52 Ast 53 U/L High 13-39 Laboratory test finding 09/28/2013 TSH (Thyroid Stimulating 1.26 IU/mL 0.34-5.60 Horm) PSA Free And Total 09/28/2013 PSA Total 2.5 ng/mL <=4.5 PSA Free 0.5 ng/mL PSA Free/Total See Comment ratio 67 Vitamin D, 25 Hydroxy 09/28/2013 25-Hydroxy Vitamin D2 <4.0 ng/mL 25-Hydroxy Vitamin D3 9.8 ng/mL 25-Hydroxy Vitamin D Total 9.8 ng/mL 68 Laboratory test finding 08/25/2013 Magnesium 1.7 mg/dL Low 1.9-2.7 69 Troponin I < 0.01 ng/mL <0.03 70 TSH (Thyroid Stimulating Horm) 2.31 IU/mL 0.34-5.60 71 Comp Metabolic Panel 08/25/2013 Sodium 130 mmol/L Low 133-145 Potassium TNP mmol/L 3.7-5.6 Chloride 95 mmol/L Low 101-111 Co2 Carbon Dioxide 26 mmol/L 22-32 Anion Gap TNP mmol/L 2-11 Glucose 100 mg/dL 70-100 Blood Urea Nitrogen 16 mg/dL 6-24 Creatinine 1.30 mg/dL High 0.67-1.17 BUN/Creatinine Ratio 12.3 8-20 Calcium 9.8 mg/dL 8.6-10.3 Total Protein 7.6 g/dL 6.4-8.9 Albumin 4.7 g/dL 3.2-5.2 Globulin 2.9 g/dL 2-4 Albumin/Globulin Ratio 1.6 1-3 Total Bilirubin 0.50 mg/dL 0.2-1.0 Alkaline Phosphatase 67 U/L 34-104 Alt 33 U/L 7-52 Ast TNP U/L 13-39 Egfr Non- 55.9 >60 Egfr 71.9 >60 72 Inr/Protime 08/25/2013 Inr 0.97 0.85-1.06 CBC Auto Diff 08/25/2013 White Blood Count 6.6 10^3/uL 4.8-10.8 Red Blood Count 3.91 10^6/uL Low 4.0-5.4 Hemoglobin 13.6 g/dL Low 14.0-18.0 Hematocrit 39 % Low 42-52 Mean Corpuscular Volume 101 fL High 80-94 Mean Corpuscular Hemoglobin 35 pg High 27-31 Mean Corpuscular HGB Conc 35 g/dL 31-36 Red Cell Distribution Width 14 % 10.5-15 Platelet Count 319 10^3/uL 150-450 Mean Platelet Volume 7 um3 Low 7.4-10.4 Abs Neutrophils 4.5 10^3/uL 1.5-7.7 Abs Lymphocytes 1.3 10^3/uL 1.0-4.8 Abs Monocytes 0.5 10^3/uL 0-0.8 Abs Eosinophils 0.1 10^3/uL 0-0.6 Abs Basophils 0.1 10^3/uL 0-0.2 Abs Nucleated RBC 0.01 10^3/uL Granulocyte % 68.5 % 38-83 Lymphocyte % 20.0 % Low 25-47 Monocyte % 8.2 % 1-9 Eosinophil % 2.1 % 0-6 Basophil % 1.2 % 0-2 Nucleated Red Blood Cells % 0.1 Urinalysis 08/25/2013 Urine Color Yellow Urine Appearance Clear Urine Specific [place] 1.005 Low 1.010-1.030 Urine Esterase Negative Negative Urine Nitrate Negative Negative Urine Urobilinogen Negative E.U./dL Negative Urine Protein Negative mg/dL Negative Urine pH 7.5 5-9 Urine Blood Negative Negative Urine Ketones Negative mg/dL Negative Urine Bilirubin Negative Negative Urine Glucose Negative mg/dL Negative Comp Metabolic Panel 08/25/2013 Sodium 132 mmol/L Low 133-145 Potassium 4.4 mmol/L 3.7-5.6 Chloride 96 mmol/L Low 101-111 Co2 Carbon Dioxide 26 mmol/L 22-32 Anion Gap 10 mmol/L 2-11 Glucose 99 mg/dL 70-100 Blood Urea Nitrogen 15 mg/dL 6-24 Creatinine 1.31 mg/dL High 0.67-1.17 BUN/Creatinine Ratio 11.5 8-20 Calcium 9.7 mg/dL 8.6-10.3 Total Protein 7.2 g/dL 6.4-8.9 Albumin 4.3 g/dL 3.2-5.2 Globulin 2.9 g/dL 2-4 Albumin/Globulin Ratio 1.5 1-3 Total Bilirubin 0.50 mg/dL 0.2-1.0 Alkaline Phosphatase 68 U/L 34-104 Alt 31 U/L 7-52 Ast 33 U/L 13-39 Egfr Non- 55.4 >60 Egfr 71.3 >60 73 CBC Auto Diff 08/17/2013 White Blood Count 5.5 10^3/uL 4.8-10.8 Red Blood Count 3.68 10^6/uL Low 4.0-5.4 Hemoglobin 12.7 g/dL Low 14.0-18.0 Hematocrit 37 % Low 42-52 Mean Corpuscular Volume 101 fL High 80-94 Mean Corpuscular Hemoglobin 35 pg High 27-31 Mean Corpuscular HGB Conc 34 g/dL 31-36 Red Cell Distribution Width 15 % 10.5-15 Platelet Count 323 10^3/uL 150-450 Mean Platelet Volume 7 um3 Low 7.4-10.4 Abs Neutrophils 3.9 10^3/uL 1.5-7.7 Abs Lymphocytes 1.0 10^3/uL 1.0-4.8 Abs Monocytes 0.4 10^3/uL 0-0.8 Abs Eosinophils 0.1 10^3/uL 0-0.6 Abs Basophils 0 10^3/uL 0-0.2 Abs Nucleated RBC 0.01 10^3/uL Granulocyte % 71.1 % 38-83 Lymphocyte % 18.5 % Low 25-47 Monocyte % 8.1 % 1-9 Eosinophil % 1.7 % 0-6 Basophil % 0.6 % 0-2 Nucleated Red Blood Cells % 0.1 Comp Metabolic Panel 08/17/2013 Sodium 131 mmol/L Low 133-145 Potassium 5.4 mmol/L 3.7-5.6 74 Chloride 97 mmol/L Low 101-111 Co2 Carbon Dioxide 27 mmol/L 22-32 Anion Gap 7 mmol/L 2-11 Glucose 109 mg/dL High 70-100 Blood Urea Nitrogen 13 mg/dL 6-24 Creatinine 1.20 mg/dL High 0.67-1.17 BUN/Creatinine Ratio 10.8 8-20 Calcium 9.5 mg/dL 8.6-10.3 Total Protein 7.0 g/dL 6.4-8.9 Albumin 4.2 g/dL 3.2-5.2 Globulin 2.8 g/dL 2-4 Albumin/Globulin Ratio 1.5 1-3 Total Bilirubin 0.50 mg/dL 0.2-1.0 Alkaline Phosphatase 87 U/L 34-104 Alt 51 U/L 7-52 Ast 64 U/L High 13-39 75 Egfr Non- 61.3 >60 Egfr 78.9 >60 76 Laboratory test finding 08/17/2013 Troponin I < 0.01 ng/mL <0.03 77 TSH (Thyroid Stimulating Horm) 2.13 IU/mL 0.34-5.60 Basic Metabolic Panel 04/07/2013 Glucose 96 mg/dL 76-115 BUN 19 mg/dL 5-23 Creatinine 1.3 mg/dL 0.5-1.4 Glom Filtration Rate, Estimate 59 mL/min >60 If >60 mL/min >60 78 BUN/Creat 14.6 ratio Sodium 134 mmol/L Low 136-145 Potassium 4.6 mmol/L 3.5-5.1 Chloride 98 mmol/L 98-107 Carbon Dioxide 26 mEq/L 18-29 Anion Gap 15 mEq/L 8-16 Calcium 9.6 mg/dL 8.5-10.1 CBC W/Automated Diff 04/07/2013 White Blood Count 6.0 K/uL 3.4-10.5 Red Blood Count 4.07 M/uL Low 4.20-5.80 Hemoglobin 13.9 gm/dL 12.8-17.0 Hematocrit 41.5 % 38.0-48.0 Mean Cell Volume 102.0 fl High 80.0-96.0 Mean Corpuscular HGB 34.2 pg High 27.0-33.0 Mean Corpuscular HGB Conc 33.5 g/dL 31.7-36.0 Platelet Count 282 K/uL 150-400 Red Cell Distri Width SD 45.0 fl 36-51 Red Cell Distri Width %CV 12.3 % 11.6-15.8 Mean Platelet Volume 9.3 fL 6.6-10.6 Neut% 67.6 % 33.0-73.0 Lymph % 18.7 % 17.0-56.0 Crowley % 10.4 % High 0.0-10.0 Eo% 2.8 % 0.0-5.0 Bas% 0.5 % 0.1-1.0 Neut# 4.07 K/uL 1.8-7.0 Lymph # 1.13 K/uL Low 1.2-4.0 Crowley # 0.63 K/uL High 0.0-0.6 Eos # 0.17 K/uL 0.0-0.5 Baso # 0.03 K/uL Low 0.1-0.2 Laboratory test 04/07/2013 C-Reactive Protein,Cardiac 1.97 mg/L 0.00- 3.00 79 finding Sedimentation Rate 12 mm/hr 0-20 LDL Cholesterol Profile 04/07/2013 Cholesterol 359 mg/dL High 120-200 Triglycerides 365 mg/dL High 16-231 HDL Cholesterol 67 mg/dL 29-83 LDL-Cholesterol 219 mg/dL High 62-185 Liver Function Tests 04/07/2013 Total Protein 7.6 g/dL 6.3-8.0 Albumin 4.3 g/dL 3.5-5.0 Globulin 3.3 g/dL 1.9-4.3 Alb/Glob 1.3 ratio Bilirubin,Total 0.3 mg/dL 0.2-1.2 Bilirubin,Direct < 0.1 mg/dL Low 0.1-0.4 Bilirubin,Indirect 0.2 mg/dL 0.0-0.9 Sgot/Ast 31 U/L 16-40 SGPT/Alt 40 U/L 30-65 Alkaline Phosphatase 57 U/L 50-136 Prostate Specific Antigen 04/07/2013 PSA ([place] Loci) 1.17 ng/mL 0.00- 4.00 80 PSA ([place] CP) 0.96 ng/mL 0.0-4.0 81 Laboratory test finding 04/07/2013 Thyroid Stim Hormone 1.25 uIU/mL 0.49- 4.67 Glycohemoglobin A1c 04/07/2013 Glycohemoglobin (A1c) 5.6 % 4.8-6.0 82 eAG 114 mg/dL Laboratory test finding 11/23/2012 Amylase 31 U/L 18-98 Basic Metabolic Panel 11/23/2012 Glucose 106 mg/dL 76-115 BUN 15 mg/dL 5-23 Creatinine 1.6 mg/dL High 0.5-1.4 Glom Filtration Rate, Estimate 47 mL/min >60 If 57 mL/min >60 83 BUN/Creat 9.3 ratio Sodium 136 mmol/L 136-145 Potassium 4.7 mmol/L 3.5-5.1 Chloride 99 mmol/L 98-107 Carbon Dioxide 29 mEq/L 18-29 Anion Gap 13 mEq/L 8-16 Calcium 9.0 mg/dL 8.5-10.1 CBC W/Automated Diff 11/23/2012 White Blood Count 4.5 K/uL 3.4-10.5 Red Blood Count 3.56 M/uL Low 4.20-5.80 Hemoglobin 12.5 gm/dL Low 12.8-17.0 Hematocrit 37.8 % Low 38.0-48.0 Mean Cell Volume 106.2 fl High 80.0-96.0 Mean Corpuscular HGB 35.1 pg High 27.0-33.0 Mean Corpuscular HGB Conc 33.1 g/dL 31.7-36.0 Platelet Count 255 K/uL 150-400 Red Cell Distri Width SD 50.8 fl 36-51 Red Cell Distri Width %CV 13.5 % 11.6-15.8 Mean Platelet Volume 9.7 fL 6.6-10.6 Neut% 54.3 % 33.0-73.0 Lymph % 29.5 % 17.0-56.0 Crowley % 11.5 % High 0.0-10.0 Eo% 4.0 % 0.0-5.0 Bas% 0.7 % 0.1-1.0 Neut# 2.45 K/uL 1.8-7.0 Lymph # 1.33 K/uL 1.2-4.0 Crowley # 0.52 K/uL 0.0-0.6 Eos # 0.18 K/uL 0.0-0.5 Baso # 0.03 K/uL Low 0.1-0.2 Laboratory test finding 11/23/2012 Sedimentation Rate 13 mm/hr 0-20 C-Reactive Protein,Cardiac 3.02 mg/L High 0.00-3.00 84 Lipase 185 U/L 28-380 Folic Acid 6.3 ng/mL 6.0-15.4 85 LDL Cholesterol Profile 11/23/2012 Cholesterol 309 mg/dL High 120-200 Triglycerides 202 mg/dL 16-231 HDL Cholesterol 86 mg/dL High 29-83 LDL-Cholesterol 183 mg/dL 62-185 Liver Function Tests 11/23/2012 Total Protein 7.4 g/dL 6.3-8.0 Albumin 4.2 g/dL 3.5-5.0 Globulin 3.2 g/dL 1.9-4.3 Alb/Glob 1.3 ratio Bilirubin,Total 0.5 mg/dL 0.2-1.2 Bilirubin,Direct 0.2 mg/dL 0.1-0.4 Bilirubin,Indirect 0.3 mg/dL 0.0-0.9 Sgot/Ast 67 U/L High 16-40 SGPT/Alt 64 U/L 30-65 Alkaline Phosphatase 69 U/L 50-136 Laboratory test finding 11/23/2012 TSH Reflex FT4 and/or 1.63 uIU/mL 0.49 -4.67 86 FT3 Vitamin B12 359 pg/mL 200-900 87 Glycohemoglobin A1c 11/23/2012 Glycohemoglobin (A1c) 5.4 % 4.8-6.0 88 eAG 108 mg/dL Basic Metabolic Panel 09/21/2012 Glucose 101 mg/dL 76-115 BUN 15 mg/dL 5-23 Creatinine 1.4 mg/dL 0.5-1.4 Glom Filtration Rate, Estimate 55 mL/min >60 If >60 mL/min >60 89 BUN/Creat 10.7 ratio Sodium 136 mmol/L 136-145 Potassium 4.6 mmol/L 3.5-5.1 Chloride 97 mmol/L Low 98-107 Carbon Dioxide 30 mEq/L High 18-29 Anion Gap 14 mEq/L 8-16 Calcium 10.1 mg/dL 8.5-10.1 CBC W/Automated Diff 09/21/2012 White Blood Count 5.4 K/uL 3.4-10.5 Red Blood Count 4.40 M/uL 4.20-5.80 Hemoglobin 15.0 gm/dL 12.8-17.0 Hematocrit 45.3 % 38.0-48.0 Mean Cell Volume 103.0 fl High 80.0-96.0 Mean Corpuscular HGB 34.1 pg High 27.0-33.0 Mean Corpuscular HGB Conc 33.1 g/dL 31.7-36.0 Platelet Count 308 K/uL 150-400 Red Cell Distri Width SD 47.5 fl 36-51 Red Cell Distri Width %CV 12.9 % 11.6-15.8 Mean Platelet Volume 9.4 fL 6.6-10.6 Neut% 59.9 % 33.0-73.0 Lymph % 27.1 % 17.0-56.0 Crowley % 9.9 % 0.0-10.0 Eo% 2.0 % 0.0-5.0 Bas% 1.1 % High 0.1-1.0 Neut# 3.22 K/uL 1.8-7.0 Lymph # 1.46 K/uL 1.2-4.0 Crowley # 0.53 K/uL 0.0-0.6 Eos # 0.11 K/uL 0.0-0.5 Baso # 0.06 K/uL Low 0.1-0.2 LDL Cholesterol Profile 09/21/2012 Cholesterol 364 mg/dL High 120-200 Triglycerides 314 mg/dL High 16-231 HDL Cholesterol 92 mg/dL High 29-83 LDL-Cholesterol 209 mg/dL High 62-185 Liver Function Tests 09/21/2012 Total Protein 8.3 g/dL High 6.3-8.0 Albumin 4.7 g/dL 3.5-5.0 Globulin 3.6 g/dL 1.9-4.3 Alb/Glob 1.3 ratio Bilirubin,Total 0.5 mg/dL 0.2-1.2 Bilirubin,Direct 0.1 mg/dL 0.1-0.4 Bilirubin,Indirect 0.4 mg/dL 0.0-0.9 Sgot/Ast 43 U/L High 16-40 SGPT/Alt 53 U/L 30-65 Alkaline Phosphatase 71 U/L 50-136 Laboratory test finding 09/21/2012 Amylase 28 U/L 18-98 Lipase 166 U/L 28-380 Glycohemoglobin A1c 09/21/2012 Glycohemoglobin (A1c) 5.2 % 4.8-6.0 90 eAG 103 mg/dL Laboratory test finding 09/21/2012 Thyroid Stim Hormone 1.25 uIU/mL 0.49- 4.67 Laboratory test finding 02/05/2012 PSA 0.97 NG/ML 0-4 91 Hemoglobin A1c 5.0 % Less Than 6.0 92 Lipid Profile (Trig/Chol/HDL) 02/05/2012 Triglyceride 313 mg/dL High 40- 200 Cholesterol 258 mg/dL High Less Than 200 93 High Density Lipoprotein 92 mg/dL High 40-60 94 Cholesterol/HDL Ratio 2.80 AVERAGE 1-4.97 Low Density Lipoprotein 103 mg/dL High Less Than 100 95 Comp Metabolic Panel 02/05/2012 Sodium 133 mmol/L Low 135-145 Potassium 4.6 mmol/L 3.5-5.0 Chloride 95 mmol/L Low 101-111 Co2 (Carbon Dioxide) 28.0 mmol/L 22-32 Anion Gap 10.0 mmol/L 2-11 96 Glucose 98 mg/dL 70-100 BUN 14 mg/dL 6-24 Creatinine 1.2 mg/dL 0.50-1.40 One Over Creatinine 0.83 BUN/Creatinine Ratio 11.7 8-20 Calcium 9.8 mg/dL 8.1-9.9 Total Protein 7.3 GM/DL 6.2-8.1 Albumin 4.3 GM/DL 3.2-5.2 Globulin 3.0 GM/DL 2-4 Albumin/Globulin Ratio 1.4 1-3 Bilirubin Total 0.8 mg/dL 0.4-1.5 97 Alkaline Phosphatase 96 U/L 39-117 Alt (SGPT) 55 U/L 17-63 Ast (Sgot) 56 U/L High 12-42 eGFR Non- 61.6 > 60 eGFR 79.2 > 60 98 1 Because ethnic data is not always readily available, this report includes an eGFR for both -Americans and non- Americans. The National Kidney Disease Education Program (NKDEP) does not endorse the use of the MDRD equation for patients that are not between the ages of 18 and 70, are , have extremes of body size, muscle mass, or nutritional status, or are non- or non-. According to the [employer], irrespective of diagnosis, the stage of the disease is based on the level of kidney function: Stage Description GFR(mL/min/1.73 m(2)) 1 Kidney damage with normal or decreased GFR 90 2 Kidney damage with mild decrease in GFR 60-89 3 Moderate decrease in GFR 30-59 4 Severe decrease in GFR 15-29 5 Kidney failure <15 (or dialysis) 2 Desirable: <150 Borderline High: 150-199 High: 200-499 Very High: >500 3 Desirable: <200 Borderline High: 200-239 High: >239 4 Low: <40 Desirable: 40-60 High: >60 5 Desirable: <100 Near Optimal: 100-129 Borderline High: 130-159 High: 160-189 Very High: >189 6 Therapeutic target for the treatment of diabetes mellitus patients is <7% HBA1C, and in selective patients <6.0%. Please refer to [place] [employer] diabetic care guidelines for further information. 7 [id number] Unable to calculate due to low microalbumin 9 Because ethnic data is not always readily available, this report includes an eGFR for both -Americans and non- Americans. The National Kidney Disease Education Program (NKDEP) does not endorse the use of the MDRD equation for patients that are not between the ages of 18 and 70, are , have extremes of body size, muscle mass, or nutritional status, or are non- or non-. According to the National Kidney Foundation, irrespective of diagnosis, the stage of the disease is based on the level of kidney function: Stage Description GFR(mL/min/1.73 m(2)) 1 Kidney damage with normal or decreased GFR 90 2 Kidney damage with mild decrease in GFR 60-89 3 Moderate decrease in GFR 30-59 4 Severe decrease in GFR 15-29 5 Kidney failure <15 (or dialysis) 10 [id number] 11 Desirable <150 Borderline high 150-199 High 200-499 Very High >500 12 Desirable <200 Borderline high 200-239 High >239 13 Low <40 Desirable: 40-60 High: >60 14 Desirable: <100 mg/dL Near Optimal: 100-129 mg/dL Borderline High: 130-159 mg/dL High: 160-189 mg/dL Very High: >189 mg/dL 15 [id number] 17 Therapeutic target for the treatment of diabetes Mellitus patients is <7% HBA1C, and in selective patients <6.0%.Please refer to [place] [employer] Diabetic care guidelines for further information. 18 Because ethnic data is not always readily available, this report includes an eGFR for both -Americans and non- Americans. The National Kidney Disease Education Program (NKDEP) does not endorse the use of the MDRD equation for patients that are not between the ages of 18 and 70, are , have extremes of body size, muscle mass, or nutritional status, or are non- or non-. According to the National Kidney Foundation, irrespective of diagnosis, the stage of the disease is based on the level of kidney function: Stage Description GFR(mL/min/1.73 m(2)) 1 Kidney damage with normal or decreased GFR 90 2 Kidney damage with mild decrease in GFR 60-89 3 Moderate decrease in GFR 30-59 4 Severe decrease in GFR 15-29 5 Kidney failure <15 (or dialysis) 19 [id number] 20 Desirable <150 Borderline high 150-199 High 200-499 Very High >500 21 Desirable <200 Borderline high 200-239 High >239 22 Low <40 Desirable: 40-60 High: >60 23 Desirable: <100 mg/dL Near Optimal: 100-129 mg/dL Borderline High: 130-159 mg/dL High: 160-189 mg/dL Very High: >189 mg/dL 24 [id number] 25 Therapeutic target for the treatment of diabetes Mellitus patients is <7% HBA1C, and in selective patients <6.0%.Please refer to [place] [employer] Diabetic care guidelines for further information. 26 [id number] 27 Normal Range 180 to 914 Indeterminate Range 145 to 180 Deficient Range <145 28 [id number] 30 Because ethnic data is not always readily available, this report includes an eGFR for both -Americans and non- Americans. The National Kidney Disease Education Program (NKDEP) does not endorse the use of the MDRD equation for patients that are not between the ages of 18 and 70, are , have extremes of body size, muscle mass, or nutritional status, or are non- or non-. According to the National Kidney Foundation, irrespective of diagnosis, the stage of the disease is based on the level of kidney function: Stage Description GFR(mL/min/1.73 m(2)) 1 Kidney damage with normal or decreased GFR 90 2 Kidney damage with mild decrease in GFR 60-89 3 Moderate decrease in GFR 30-59 4 Severe decrease in GFR 15-29 5 Kidney failure <15 (or dialysis) 31 [id number] 33 Critical Result LACT:4.9 Called to [id number] at: 14:48:01 by:[email or web address] Read back by:[email or web address] [facility] Severe Sepsis and Septic Shock Management Bundle Measure requires all lactic acids initially measuring >2.0 mmol/L be repeated. 34 Acute inflammation: >10.00 35 SEE RESULT BELOW Name: BILLY BARBER : [address]: Jem Dubose MD Acct: [id number] Unit: [id number] AGE: 65 Location: [place] [address] Re01/05/16 SEX: M Status: ADM IN SPEC: [id number] GAVIN: 01/05/16-[address] [facility] [address]: Maria Dolores Stratton MD REQ: [id number] RECD: 01/05/16 STATUS: MACIEL GILL DR: Mariya Betancourt MD _ SOURCE: STOOL SPDESC: ORDERED: Hemoccult, C. diff PCR, Stool Culture, Fecal Lactoferr COMMENTS: SCANT AMOUNT OF STOOL RECEIVED IN PLAIN CONTAINER; PUT IN SMALL AMOUNT OF SOPHIE-BARTOL[employer] TRANSPORT WITHIN 2 HOURS OF COLLECTION. Procedure Result Reported Site Stool Culture Final 01/07/16- 1235 ML Result No enteric pathogens isolated Testing for Salmonella, Shigella, Aeromonas, Plesiomonas, Yersinia and Campylobacter are included in a Stool Culture. Vibrio spp not routinely tested for in a stool culture. If testing is desired, please request specifically when placing test order. Sensitivities not routinely performed on stool isolates, as antibiotics may prolong the carriage rate of bacteria. Please contact the microbiology lab if sensitivities are required. Stool Specimen Description Final 01/05/16- 1450 ML Stool Color Dark Brown Greenish Brown Stool Form Nonformed Stool Consistency Mucoid Soft Shiga Toxin 1 2 Final 01/07/16- 0837 ML Organism 1 Negative Shiga Toxin 1 2 CONTINUED ON NEXT PAGE * ML=Testing performed at Main Lab DEPARTMENT OF PATHOLOGY, [address] [place] [address] Steve Gomez M.D. Director [facility] # [id number] Patient: BILLY BARBER [id number] (Continued) Specimen: [id number] Collected: 01/05/16 Received: 01/05/16 (Continued) Procedure Result Reported Site Shiga Toxin 1 2 Final (continued) 01/07/16- 0837 Immunochromatographic Assay C. difficile PCR Final 01/05/16- 1527 ML Organism 1 027 Presumptive NEGATIVE Organism 2 Toxigenic C.diff NEGATIVE Fecal Lactoferrin (Stool WBC) Final 01/05/16- 1452 ML Fecal Lactoferrin Positive by Immunoassay TEST LIMITATIONS: Assay detects elevated levels of lactoferrin released from fecal leukocytes as a marker of intestinal inflammation. The test may not be appropriate in immunocompromised persons. Fecal samples from breast fed infants should not be used with this assay. Stool Occult Blood Final 01/05/16- 1459 ML Stool Occult Blood Positive * ML - [facility] . END OF REPORT * ML=Testing performed at Main Lab DEPARTMENT OF PATHOLOGY, [address] [place] [address] Steve Gomez M.D. Director [facility] # [id number] 36 Because ethnic data is not always readily available, this report includes an eGFR for both -Americans and non- Americans. The National Kidney Disease Education Program (NKDEP) does not endorse the use of the MDRD equation for patients that are not between the ages of 18 and 70, are , have extremes of body size, muscle mass, or nutritional status, or are non- or non-. According to the National Kidney Foundation, irrespective of diagnosis, the stage of the disease is based on the level of kidney function: Stage Description GFR(mL/min/1.73 m(2)) 1 Kidney damage with normal or decreased GFR 90 2 Kidney damage with mild decrease in GFR 60-89 3 Moderate decrease in GFR 30-59 4 Severe decrease in GFR 15-29 5 Kidney failure <15 (or dialysis) 37 Because ethnic data is not always readily available, this report includes an eGFR for both -Americans and non- Americans. The National Kidney Disease Education Program (NKDEP) does not endorse the use of the MDRD equation for patients that are not between the ages of 18 and 70, are , have extremes of body size, muscle mass, or nutritional status, or are non- or non-. According to the National Kidney Foundation, irrespective of diagnosis, the stage of the disease is based on the level of kidney function: Stage Description GFR(mL/min/1.73 m(2)) 1 Kidney damage with normal or decreased GFR 90 2 Kidney damage with mild decrease in GFR 60-89 3 Moderate decrease in GFR 30-59 4 Severe decrease in GFR 15-29 5 Kidney failure <15 (or dialysis) 38 Low risk: <1.00 Average risk: 1.00-3.00 High risk: >3.00 39 Desirable <150 Borderline high 150-199 High 200-499 Very High >500 40 Desirable <200 Borderline high 200-239 High >239 41 Low <40 Desirable: 40-60 High: >60 42 Desirable: <100 mg/dL Near Optimal: 100-129 mg/dL Borderline High: 130-159 mg/dL High: 160-189 mg/dL Very High: >189 mg/dL 43 Therapeutic target for the treatment of diabetes Mellitus patients is <7% HBA1C, and in selective patients <6.0%.Please refer to [place] [employer] Diabetic care guidelines for further information. 44 Normal Range 180 to 914 Indeterminate Range 145 to 180 Deficient Range <145 45 Note: Persistent reduction for 3 months or more in an eGFR <60 mL/min/1.73 m2 defines CKD. Patients with eGFR values >/=60 mL/min/1.73 m2 may also have CKD if evidence of persistent proteinuria is present. The original MDRD equation for estimated GFR is not valid for patients less than 18 years of age. Additional information may be found at www.kdoqi.org. 46 Elevated levels of HbA1c suggest the need for more aggressive treatment of glycemia. The [place] [employer] recommends that a primary goal of therapy should be a HbA1c of <7% and that physicians should re-evaluate the treatment regimen in patients with HbA1c values consistently >8%. 47 Reference Guidelines*: Desirable: ........... < 200 mg/dL Borderline High: ..... 200-239 mg/dL High: ................ >=240 mg/dL * The National Cholesterol Education Program (NCEP) 48 Reference Guidelines*: Normal: ............. < 150 mg/dL Borderline High: .... 150-199 mg/dL High: ............... 200-499 mg/dL Very High: .......... > 500 mg/dL * Source: National Cholesterol Education Program (NCEP) 49 Reference Guidelines*: Low HDL: ..... < 40 mg/dL Normal: ..... 40-60 mg/dL Desirable: ... > 60 mg/dL *The National Cholesterol Education Program(NCEP) 50 Reference Guidelines*: Optimal:........... <100 mg/dL Near Optimal....... 100-129 mg/dL Borderline High.... 130-159 mg/dL High............... 160-189 mg/dL Very High.......... >=190 mg/dL * Source: National Cholesterol Education Program (NCEP) 51 Note: Persistent reduction for 3 months or more in an eGFR <60 mL/min/1.73 m2 defines CKD. Patients with eGFR values >/=60 mL/min/1.73 m2 may also have CKD if evidence of persistent proteinuria is present. The original MDRD equation for estimated GFR is not valid for patients less than 18 years of age. Additional information may be found at www.kdoqi.org. 52 Performed at: [facility] [id number] Transit Department Clerk: Nico Sy MD, Phone: [phone] 53 Elevated levels of HbA1c suggest the need for more aggressive treatment of glycemia. The [place] [employer] recommends that a primary goal of therapy should be a HbA1c of <7% and that physicians should re-evaluate the treatment regimen in patients with HbA1c values consistently >8%. 54 THIS ASSAY IS NOT INTENDED A CANCER SCREENING TEST The concentration of PSA in a given specimen, determined with assays from different manufacturers, can vary due to differences in assay methods and reagent specificity. Values obtained from different assay methods cannot be used interchangeably. 55 Reference Guidelines*: Desirable: ........... < 200 mg/dL Borderline High: ..... 200-239 mg/dL High: ................ >=240 mg/dL * The National Cholesterol Education Program (NCEP) 56 Reference Guidelines*: Normal: ............. < 150 mg/dL Borderline High: .... 150-199 mg/dL High: ............... 200-499 mg/dL Very High: .......... > 500 mg/dL * Source: National Cholesterol Education Program (NCEP) 57 Reference Guidelines*: Low HDL: ..... < 40 mg/dL Normal: ..... 40-60 mg/dL Desirable: ... > 60 mg/dL *The National Cholesterol Education Program(NCEP) 58 Reference Guidelines*: Optimal:........... <100 mg/dL Near Optimal....... 100-129 mg/dL Borderline High.... 130-159 mg/dL High............... 160-189 mg/dL Very High.......... >=190 mg/dL * Source: National Cholesterol Education Program (NCEP) 59 Note: Persistent reduction for 3 months or more in an eGFR <60 mL/min/1.73 m2 defines CKD. Patients with eGFR values >/=60 mL/min/1.73 m2 may also have CKD if evidence of persistent proteinuria is present. The original MDRD equation for estimated GFR is not valid for patients less than 18 years of age. Additional information may be found at www.kdoqi.org. 60 RUN DATE: 12/05/13 [facility] LAB LIVE PAGE 1 RUN TIME: [address] [place] [address] Specimen Inquiry Name: BILLY BARBER : [address]: Kamron Renteria MD Acct: [id number] Unit: [id number] AGE: 63 Location: [facility] Re12/02/13 SEX: M Status: REG REF SPEC: [id number] GAVIN: 12/02/13- SUBM DR: Kamron Renteria MD REQ: [id number] RECD: 12/02/131524 STATUS: BING SOLIS DR: Mariya Betancourt MD _ ORDERED: LEVEL IV/6 FINAL DIAGNOSIS 1. Colon, cecum, biopsy: A. Tubular adenoma. B. No high grade dysplasia or malignancy. 2. Colon, transverse, biopsy: A. Tubular adenoma. B. No high grade dysplasia or malignancy. 3. Colon, 60 cm., biopsy: A. Tubular adenoma. B. No high grade dysplasia or malignancy. 4. Colon, 40 cm., biopsy: Hyperplastic polyp. 5. Colon, 25 cm. biopsy: A. Tubular adenoma. B. No high grade dysplasia or malignancy. 6. Colon, 15 cm. biopsy: A. Tubular adenoma. B. No high grade dysplasia or malignancy. CLINICAL HISTORY Screening colonoscopy CONTINUED ON NEXT PAGE * ML=Testing performed at Main Lab DEPARTMENT OF PATHOLOGY, [facility] [employer] [place] [address] Steve Gomez M.D. Director [facility] # [id number] RUN DATE: 12/05/13 [facility] LAB LIVE PAGE 2 RUN TIME: 1340 [facility] [address] [place], [place] [address] Specimen Inquiry Patient: BILLY BARBER Dany [id number] (Continued) POST-OPERATIVE DIAGNOSIS (Continued) POST-OPERATIVE DIAGNOSIS Screening colonoscopy into cecum, prep fair - seven small polyps removed GROSS DESCRIPTION 1. The specimen is received in formalin labeled Billy Barber, Biopsy Cecal Polyp, and consists of a 0.5 x 0.2 x 0.2 cm. adrian-pink, irregular soft tissue fragment. Submitted entirely, one cassette. 2. The specimen is received in formalin labeled Billy Barber, Biopsy Polyps in Transverse Colon, and consists of a 0.9 x 0.5 x 0.3 cm. aggregate of multiple adrian-pink, irregular to polypoid soft tissue fragments. Submitted entirely, one cassette. 3. The specimen is received in formalin labeled Billy Barber, Biopsy Polyp at 60 cm., and consists of a 0.4 x 0.3 x 0.2 cm. adrian, irregular soft tissue fragment. Submitted entirely, one cassette. 4. The specimen is received in formalin labeled Billy Barber, Biopsy Colon Polyp at 40 cm., and consists of a 0.2 x 0.2 x 0.2 cm. adrian, polypoid soft tissue fragment. Submitted entirely, one cassette. 5. The specimen is received in formalin labeled Billy Barber, Biopsy Colon Polyp at 25 cm., and consists of a 0.3 x 0.2 x 0.2 cm. adrian polypoid soft tissue fragment. Submitted entirely, one cassette. 6. The specimen is received in formalin labeled Billy Barber, Biopsy Colon Polyp at 15 cm., and consists of a 0.8 x 0.5 x 0.3 cm. aggregate of multiple adrian-pink irregular to polypoid soft tissue fragments. Submitted entirely, one cassette. 1. Signed (signature on file) Steve Gomez MD 1340 END OF REPORT * ML=Testing performed at Main Lab DEPARTMENT OF PATHOLOGY, [address] [place] [address] Steve Gomez M.D. Director [facility] # [id number] 61 Because ethnic data is not always readily available, this report includes an eGFR for both -Americans and non- Americans. The National Kidney Disease Education Program (NKDEP) does not endorse the use of the MDRD equation for patients that are not between the ages of 18 and 70, are , have extremes of body size, muscle mass, or nutritional status, or are non- or non-. According to the National Kidney Foundation, irrespective of diagnosis, the stage of the disease is based on the level of kidney function: Stage Description GFR(mL/min/1.73 m(2)) 1 Kidney damage with normal or decreased GFR 90 2 Kidney damage with mild decrease in GFR 60-89 3 Moderate decrease in GFR 30-59 4 Severe decrease in GFR 15-29 5 Kidney failure <15 (or dialysis) 62 Low risk: <1.0 mg/L Average risk: 1.0-3.0 mg/L High risk: >3.0 mg/L Acute inflammation: >10.0 mg/L 63 Desirable <150 Borderline high 150-199 High 200-499 Very High >500 64 Desirable <200 Borderline high 200-239 High >239 65 Low <40 Desirable: 40-60 High: >60 66 Desirable <100 Near Optimal 100-129 Borderline high 130-159 High 160-189 Very High >189 67 Ratio not calculated because clinical usefulness is not defined except in range of total PSA 4.0-10.0 ng/mL. The testing method is an electrochemiluminescence assay manufactured by [employer] and performed on the Modular or Juno system. Values obtained with different assay methods or kits may be different and cannot be used interchangeably. Test results cannot be interpreted as absolute evidence for the presence or absence of malignant disease. Test Performed by: [facility] [address] [place] [address] Project Portfolio Analyst: Nathan Sam III, M.D. 68 Interpretation: <10 ng/mL (severe deficiency) -- REFERENCE VALUE -- 25-HYDROXY D TOTAL (D2+D3) Optimum levels in the healthy population are 20-50, patients with bone disease may benefit from higher levels within this range. Test Performed by: [facility] [address] [place] [address] Project Portfolio Analyst: Nathan Sam III, M.D. 69 Specimen hemolyzed. Unable to perform potassium and AST. Reorder for specimen recollection at providers request. [id number] was called for at 1016 on 08/25/13 by [email or web address] 70 Reference Range and Interpretation: TnI (ng/mL) Interpretation Less Than 0.03 ng/mL Not supportive of diagnosis of MD 0.03 - 0.50 ng/mL Indeterminate: suggest serial studies if clinically indicated. Greater than 0.5 ng/mL Consistent with diagnosis of MD 71 Specimen hemolyzed. Unable to perform potassium and AST. Reorder for specimen recollection at providers request. [id number] was called for at 1016 on 08/25/13 by [email or web address] 72 Because ethnic data is not always readily available, this report includes an eGFR for both -Americans and non- Americans. The National Kidney Disease Education Program (NKDEP) does not endorse the use of the MDRD equation for patients that are not between the ages of 18 and 70, are , have extremes of body size, muscle mass, or nutritional status, or are non- or non-. According to the National Kidney Foundation, irrespective of diagnosis, the stage of the disease is based on the level of kidney function: Stage Description GFR(mL/min/1.73 m(2)) 1 Kidney damage with normal or decreased GFR 90 2 Kidney damage with mild decrease in GFR 60-89 3 Moderate decrease in GFR 30-59 4 Severe decrease in GFR 15-29 5 Kidney failure <15 (or dialysis) 73 Because ethnic data is not always readily available, this report includes an eGFR for both -Americans and non- Americans. The National Kidney Disease Education Program (NKDEP) does not endorse the use of the MDRD equation for patients that are not between the ages of 18 and 70, are , have extremes of body size, muscle mass, or nutritional status, or are non- or non-. According to the National Kidney Foundation, irrespective of diagnosis, the stage of the disease is based on the level of kidney function: Stage Description GFR(mL/min/1.73 m(2)) 1 Kidney damage with normal or decreased GFR 90 2 Kidney damage with mild decrease in GFR 60-89 3 Moderate decrease in GFR 30-59 4 Severe decrease in GFR 15-29 5 Kidney failure <15 (or dialysis) 74 Specimen hemolyzed. Interpret results with caution. 75 Specimen hemolyzed. Interpret results with caution. 76 Because ethnic data is not always readily available, this report includes an eGFR for both -Americans and non- Americans. The National Kidney Disease Education Program (NKDEP) does not endorse the use of the MDRD equation for patients that are not between the ages of 18 and 70, are , have extremes of body size, muscle mass, or nutritional status, or are non- or non-. According to the National Kidney Foundation, irrespective of diagnosis, the stage of the disease is based on the level of kidney function: Stage Description GFR(mL/min/1.73 m(2)) 1 Kidney damage with normal or decreased GFR 90 2 Kidney damage with mild decrease in GFR 60-89 3 Moderate decrease in GFR 30-59 4 Severe decrease in GFR 15-29 5 Kidney failure <15 (or dialysis) 77 Reference Range and Interpretation: TnI (ng/mL) Interpretation Less Than 0.03 ng/mL Not supportive of diagnosis of MD 0.03 - 0.50 ng/mL Indeterminate: suggest serial studies if clinically indicated. Greater than 0.5 ng/mL Consistent with diagnosis of MD 78 Note: Persistent reduction for 3 months or more in an eGFR <60 mL/min/1.73 m2 defines CKD. Patients with eGFR values >/=60 mL/min/1.73 m2 may also have CKD if evidence of persistent proteinuria is present. The original MDRD equation for estimated GFR is not valid for patients less than 18 years of age. Additional information may be found at www.kdoqi.org. 79 Relative Risk for Future Cardiovascular Event Low <1.00 Average 1.00 - 3.00 High >3.00 80 THIS ASSAY IS NOT INTENDED A CANCER SCREENING TEST The concentration of PSA in a given specimen, determined with assays from different manufacturers, can vary due to differences in assay methods and reagent specificity. Values obtained from different assay methods cannot be used interchangeably. 81 Test PSA ([employer]) is provided in conjunction with the PSA ([employer]) method to assist in establishing a new baseline for serially monitored patients. THIS ASSAY IS NOT INTENDED A CANCER SCREENING TEST 82 A1c value between 5.7% and 6.4% is considered at increased risk for diabetes. A1c value greater than 6.5 % is considered essentially diagnostic for Type II diabetes. Current guidelines recommend a treatment goal of <7% for diabetic patients. This method will measure glycosylated hemoglobin variants, HbS, HbG, HbH, HbWayne, HbC, HbE, etc. Other hemoglobin- opathies may give incorrect results with this test. 83 Note: Persistent reduction for 3 months or more in an eGFR <60 mL/min/1.73 m2 defines CKD. Patients with eGFR values >/=60 mL/min/1.73 m2 may also have CKD if evidence of persistent proteinuria is present. The original MDRD equation for estimated GFR is not valid for patients less than 18 years of age. Additional information may be found at www.kdoqi.org. 84 Relative Risk for Future Cardiovascular Event Low <1.00 Average 1.00 - 3.00 High >3.00 85 QUERY: Is the Patient Fasting? Y 86 QUERY: Reflex add FT3? N QUERY: Reflex add FT4? Y 87 Borderline result. Homocysteine and Methylmalonic acid should be considered for values greater than 200 pg/mL and less that 400 pg/mL. 88 A1c value between 5.7% and 6.4% is considered at increased risk for diabetes. A1c value greater than 6.5 % is considered essentially diagnostic for Type II diabetes. Current guidelines recommend a treatment goal of <7% for diabetic patients. This method will measure glycosylated hemoglobin variants, HbS, HbG, HbH, HbWayne, HbC, HbE, etc. Other hemoglobin- opathies may give incorrect results with this test. 89 Note: Persistent reduction for 3 months or more in an eGFR <60 mL/min/1.73 m2 defines CKD. Patients with eGFR values >/=60 mL/min/1.73 m2 may also have CKD if evidence of persistent proteinuria is present. The original MDRD equation for estimated GFR is not valid for patients less than 18 years of age. Additional information may be found at www.kdoqi.org. 90 A1c value between 5.7% and 6.4% is considered at increased risk for diabetes. A1c value greater than 6.5 % is considered essentially diagnostic for Type II diabetes. Current guidelines recommend a treatment goal of <7% for diabetic patients. This method will measure glycosylated hemoglobin variants, HbS, HbG, HbH, HbWayne, HbC, HbE, etc. Other hemoglobin- opathies may give incorrect results with this test. 91 * SERUM LEVELS OF PSA MEASURED USING THE [facility] ACCESS HYBRITECH IMMUNOASSAY SHOULD NOT BE INTERPRETED ABSOLUTE EVIDENCE OF THE PRESENCE OR ABSENCE OF DISEASE. THE PSA VALUE SHOULD BE USED IN CONJUNCTION WITH OTHER PERTINENT CLINICAL DIAGNOSTIC PROCEDURES. The values obtained with different assay methods or kits cannot be used interchangeably. 92 THERAPEUTIC TARGET FOR THE TREATMENT OF DIABETES MELLITUS PATIENTS IS <7% HBA1C, AND IN SELECTIVE PATIENTS <6.0%. PLEASE REFER TO [employer] DIABETIC CARE GUIDELINES FOR FURTHER INFORMATION. 93 CHOLESTEROL INTERPRETATION: Desirable: Less than 200 MG/DL Borderline-High Risk: 200-239 MG/DL High-Risk: 240 MG/DL and over 94 HDL INTERPRETATION: Undesirable: High Risk: Less than 40 MG/DL Desirable: Low Risk: Greater than 60 MG/DL 95 LDL INTERPRETATION: Low Risk Optimal Level: LDL Less than 100 MG/DL Near or Above Optimal: LDL 100-129 MG/DL Borderline High Risk: LDL 130-159 MG/DL High Risk: LDL 160-189 MG/DL Very High Risk: LDL Greater than 189 MG/DL 96 Anion gap measurement may be of limited value in the presence of any alkalosis, especially in a combined acid base disorder. . 97 A metabolite of Naproxen, O-desmethylnaproxen, has been shown to interfere with the Jendrassik-Tappen method for measuring total bilirubin. Samples from patients who have taken Naproxen have shown spurious elevation in total bilirubin levels. 98 Because ethnic data is not always readily available, this report includes an eGFR for both -Americans and non- Americans. The National Kidney Disease Education Program (NKDEP) does not endorse the use of the MDRD equation for patients that are not between the ages of 18 and 70, are , have extremes of body size, muscle mass, or nutritional status, or are non- or non-. According to the National Kidney Foundation, irrespective of diagnosis, the stage of the disease is based on the level of kidney function: Stage Description GFR(mL/min/1.73 m(2)) 1 Kidney damage with normal or decreased GFR 90 2 Kidney damage with mild decrease in GFR 60-89 3 Moderate decrease in GFR 30-59 4 Severe decrease in GFR 15-29 5 Kidney failure <15 (or dialysis) Procedures Date CPT Code Description Status 04/07/2017 38628 I & D Abscess Simple/Single Incl. Completed Furuncle/Carbuncle/Cyst 01/31/2016 31712 Visual Screening Test Completed 01/31/2016 35297 EKG Completed 01/31/2016 15915 Audiometry, Bekesy, Screening Completed 10/31/2014 29025 Visual Screening Test Completed 10/31/2014 79703 EKG Completed 10/31/2014 37581 Audiometry, Bekesy, Screening Completed 10/28/2013 32623 Visual Screening Test Completed 10/28/2013 54049 Diagnostic Bekesy Audiometry Completed 08/17/2013 68614 EKG Completed 08/17/2013 28657 Oximetry Pulse Or Ear Completed 07/06/2013 Colonoscopy Completed 11/30/2012 71147 Ear Irrigation Completed 11/23/2012 58054 Ear Irrigation Completed 09/14/2012 54609 Visual Screening Test Completed 09/14/2012 52774 Spirometry Completed 09/14/2012 63881 EKG Completed 09/14/2012 13087 Diagnostic Bekesy Audiometry Completed 01/13/2012 65299 Spirometry Completed 01/22/2010 22300 EKG Completed 09/22/2006 06819 Destruction Flat Wart,Molluscum Contagiosum, Or Milia Completed Up To 14 Encounters Type Date Location Provider CPT E/M Dx Office Visit 05/27/2017 11:45a [facility] Michael Montoya [facility] 97869 I10 F41.9 E78.2 K21.0 G47.00 F10.10 F17.210 E11.65 Office Visit 04/07/2017 10:15a [facility] Mariya Betancourt M.D. 78525 I10 F41.9 E78.2 K21.0 G47.00 F10.10 F17.210 H91.93 R79.9 D52.0 F33.9 N64.4 N62 E29.1 K70.30 R60.0 K59.00 M25.511 E55.9 L72.3 L03.313 Office Visit 02/26/2017 9:00a [facility] Mariya Betancourt M.D. 98563 I10 F41.9 E78.2 K21.0 G47.00 F10.10 F17.210 H91.93 R79.9 D52.0 F33.9 N64.4 N62 E29.1 K70.30 R60.0 K59.00 M25.511 E55.9 R10.30 R19.7 R11.0 E86.0 Office Visit 01/15/2017 11:30a [facility] Mariya Betancourt M.D. 15867 I10 F41.9 E78.2 K21.0 G47.00 F10.10 F17.210 H91.93 R79.9 D52.0 F33.9 N64.4 N62 E29.1 K70.30 R60.0 K59.00 M25.511 E55.9 R10.30 R19.7 R11.0 E86.0 Office Visit 12/12/2016 10:15a [facility] Mariya Betancourt M.D. 86486 I10 F41.9 E78.2 K21.0 G47.00 F10.10 F17.210 H91.93 R79.9 D52.0 F33.9 N64.4 N62 E29.1 K70.30 R60.0 K59.00 M25.511 E55.9 Office Visit 11/27/2016 9:45a [facility] Mariya Betancourt M.D. 19839 I10 F41.9 E78.2 K21.0 G47.00 F10.10 F17.210 H91.93 R79.9 D52.0 F33.9 N64.4 N62 E29.1 K70.30 R60.0 K59.00 M25.511 E55.9 Office Visit 08/29/2016 10:15a [facility] Mariya Betancourt M.D. 63670 I10 F41.9 E78.2 K21.0 G47.00 F10.10 F17.210 H91.93 R79.9 D52.0 F33.9 N64.4 N62 E29.1 K70.30 R60.0 K59.00 M25.511 Office Visit 06/02/2016 2:30p [facility] Michael Montoya [facility] 35626 I10 F41.9 E78.2 K21.0 G47.00 F10.10 F17.210 Office Visit 03/03/2016 8:45a [facility] Michael Montoya [facility] 83334 I10 F41.9 E78.2 K21.0 G47.00 F10.10 F17.210 K86.0 Office Visit 02/28/2016 9:45a [facility] Mariya Betancourt M.D. 59983 I10 F41.9 E78.2 K21.0 G47.00 H91.93 R79.9 D52.0 F10.10 F17.210 K86.0 F33.9 N64.4 N62 E29.1 K70.30 R60.0 K59.00 Office Visit 01/31/2016 10:30a [facility] Mariya Betancourt M.D. 26681 I10 F41.9 E78.2 K21.0 G47.00 H91.93 R79.9 Z68.30 D52.0 F10.10 F17.210 K86.0 F33.9 N64.4 N62 E29.1 K70.30 R60.0 Z00.01 Office Visit 01/17/2016 10:45a [facility] Mariya Betancourt M.D. 03571 I10 F41.9 E78.2 K21.0 G47.00 H91.93 R79.9 D52.0 F10.10 F17.210 K86.0 F33.9 N64.4 N62 E29.1 K70.30 R60.0 Office Visit 11/29/2015 11:15a [facility] Mariya Betancourt M.D. 64012 I10 F41.9 E78.2 K21.0 G47.00 H91.93 R79.9 D52.0 F10.10 F17.210 K86.0 F33.9 N64.4 N62 E29.1 J20.9 J01.40 H66.93 R50.9 R06.02 Office Visit 10/24/2015 4:00p [facility] Mariya Betancourt M.D. 73975 I10 F41.9 E78.2 K21.0 G47.00 H91.93 R79.9 D52.0 F10.10 F17.210 K86.0 F33.9 N64.4 N62 E29.1 Office Visit 08/30/2015 10:30a [facility] Mariya Betancourt M.D. 76976 I10 F41.9 E78.2 K21.0 G47.00 H91.93 R79.9 D52.0 F10.10 F17.210 K86.0 F33.9 N64.4 N62 E29.1 Office Visit 06/07/2015 10:00a [facility] Mariya Betancourt M.D. 59851 I10 F41.9 E78.2 K21.0 G47.00 H91.93 R79.9 D52.0 F10.10 F17.210 K86.0 F33.9 N64.4 N62 E29.1 Office Visit 05/08/2015 9:15a [facility] Mariya Betancourt M.D. 75991 I10 F41.9 E78.2 K21.0 G47.00 H91.93 R79.9 D52.0 F10.10 F17.210 K86.0 F33.9 N64.4 N62 E29.1 Office Visit 05/01/2015 10:15a [facility] Mariya Betancourt M.D. 15594 I10 F41.9 E78.2 K21.0 G47.00 H91.93 R79.9 D52.0 F10.10 F17.210 K86.0 F33.9 N64.4 N62 Z23 Office Visit 04/03/2015 10:00a [facility] Mariya Betancourt M.D. 25140 I10 F41.9 E78.2 K21.0 G47.00 H91.93 R79.9 D52.0 F10.10 F17.210 K86.0 F33.9 N64.4 N62 Office Visit 12/08/2014 10:45a [facility] Mariya Betancourt M.D. 95771 401.1 300.00 272.2 577.1 305.1 305.00 530.11 311 281.2 790.6 780.52 389.9 Office Visit 10/31/2014 9:30a [facility] Mariya Betancourt M.D. 36941 V70.0 401.1 300.00 272.2 577.1 305.1 305.00 530.11 311 281.2 790.6 780.52 389.9 Office Visit 09/28/2014 10:45a [facility] Mariya Betancourt M.D. 15750 401.1 300.00 272.2 577.1 305.1 305.00 530.11 311 281.2 790.6 780.52 009.1 789.07 787.91 787.01 Office Visit 05/22/2014 11:00a [facility] Mariya Betancourt M.D. 86344 401.1 300.00 272.2 577.1 305.1 305.00 530.11 311 281.2 790.6 780.52 Office Visit 04/20/2014 9:15a [facility] Mariya Betancourt M.D. 50497 401.1 300.00 272.2 577.1 305.1 305.00 530.11 311 281.2 790.6 V04.81 780.52 Office Visit 03/21/2014 9:45a [facility] Mariya Betancourt M.D. 72114 401.1 300.00 272.2 577.1 305.1 305.00 530.11 311 281.2 790.6 Office Visit 03/14/2014 9:30a [facility] John Sarah, [facility] 62746 401.1 300.00 272.2 577.1 305.1 305.00 530.11 311 281.2 790.6 Office Visit 02/28/2014 9:00a [facility] John SarahROSA negron 68713 300.00 311 401.1 272.2 458.0 530.11 577.1 305.1 305.00 Office Visit 01/19/2014 8:45a [facility] Sarah Lopez FNP 04087 401.1 272.2 458.0 311 530.11 Office Visit 10/28/2013 9:30a [place] [address] V70.0 V76.41 Office Visit 09/28/2013 10:30[place] [address] 401.1 272.2 250.02 300.00 577.1 715.90 530.11 719.46 305.1 573.9 311 780.2 305.00 784.0 477.8 780.79 780.4 Office Visit 09/08/2013 9:45[place] [address] 401.1 272.2 250.02 300.00 577.1 715.90 530.11 719.46 305.1 573.9 311 780.2 305.00 784.0 477.8 780.79 780.4 Office Visit 08/17/2013 8:30a [place] [address] 401.1 272.2 250.02 300.00 577.1 715.90 530.11 719.46 305.1 573.9 311 305.00 784.0 477.8 780.79 780.4 780.2 Office Visit 05/17/2013 8:45a [facility] Scarlet Diana, GREENHOUSE WORK[employer] 22565 401.1 272.2 250.02 300.00 577.1 715.90 530.11 719.46 305.1 573.9 311 305.00 784.0 477.8 780.79 Office Visit 04/14/2013 9:45a [facility] Scarlet Diana, GREENHOUSE WORKER 18961 401.1 272.2 250.02 300.00 577.1 715.90 530.11 719.46 305.1 573.9 311 305.00 784.0 477.8 780.79 Office Visit 04/07/2013 9:15a [facility] Scarlet Diana, GREENHOUSE WORKER 16165 401.1 272.2 250.02 300.00 577.1 715.90 530.11 719.46 305.1 573.9 311 305.00 784.0 477.8 780.79 Office Visit 03/03/2013 9:15a [facility] Mariya Betancourt M.D. 34487 401.1 272.2 250.02 300.00 577.1 715.90 530.11 719.46 305.1 573.9 311 305.00 784.0 477.8 780.79 Office Visit 11/30/2012 9:15a [facility] Mariya Betancourt M.D. 10175 401.1 272.2 250.02 300.00 577.1 715.90 530.11 719.46 305.1 573.9 311 305.00 784.0 477.8 380.4 780.79 Office Visit 11/23/2012 9:15a [facility] Mariya Betancourt M.D. 74048 401.1 272.2 250.02 300.00 577.1 715.90 530.11 719.46 305.1 573.9 311 305.00 784.0 477.8 380.4 Office Visit 09/21/2012 10:00a [facility] Mariya Betancourt M.D. 18592 401.1 272.2 250.02 300.00 577.1 715.90 530.11 719.46 305.1 573.9 311 305.00 784.0 380.4 Office Visit 09/14/2012 10:15a [facility] Mariya Betancourt M.D. 38964 V70.0 401.1 786.05 272.2 388.70 250.02 577.1 715.90 530.11 300.00 719.46 305.1 V76.41 573.9 V85.32 780.79 311 305.00 784.0 Office Visit 06/10/2012 10:00a [facility] Mariya Betancourt M.D. 75188 401.1 272.2 250.02 577.1 715.90 530.11 300.00 719.46 305.1 573.9 780.79 311 305.00 784.0 V04.81 Office Visit 04/19/2012 8:45a [facility] Hamida Milian [facility] 68285 401.1 272.2 250.02 577.1 715.90 530.11 300.00 719.46 Office Visit 03/31/2012 10:00a [facility] Hamida Milian [facility] 79665 577.1 715.90 530.11 250.02 300.00 719.46 401.1 272.2 Office Visit 02/19/2012 9:45a [facility] Hamida Milian [facility] 14141 577.1 715.90 530.11 250.02 300.00 719.46 Office Visit 02/05/2012 9:00a [facility] Hamida Milian [facility] 16562 401.1 272.2 577.1 715.90 530.11 250.02 300.00 719.46 Office Visit 01/13/2012 11:00a [facility] Mariya Betancourt M.D. 38548 382.9 462 491.21 466.0 786.2 715.90 477.8 401.1 305.1 461.8 Office Visit 11/04/2011 10:00a [facility] Mariya Betancourt M.D. 85726 577.1 530.11 401.1 272.2 250.02 305.1 573.9 477.8 478.19 Office Visit 10/28/2011 9:15a [facility] Mariya Betancourt M.D. 02648 780.79 250.00 577.1 311 530.11 401.1 272.2 305.00 300.00 250.02 305.1 573.9 719.46 784.0 Office Visit 10/09/2011 4:15p [facility] Mariya Betancourt M.D. 34113 780.79 577.1 715.90 311 530.11 536.8 Office Visit 07/29/2011 9:45a [facility] Mariya Betancourt M.D. 18397 401.1 272.2 780.79 300.00 Office Visit 07/15/2011 9:00a [facility] Mariya Betancourt M.D. 08627 401.1 272.2 780.79 Office Visit 06/03/2011 10:15a [facility] Mariya Betancourt M.D. 22938 401.1 250.02 272.2 577.1 305.1 Office Visit 05/16/2011 9:30a [facility] Mariya Betancourt M.D. 89223 401.1 401.1 250.02 250.02 272.2 272.2 Office Visit 05/12/2011 10:15a [facility] Mariya Betancourt M.D. 06705 401.1 250.02 272.2 311 Office Visit 03/03/2011 9:00a [facility] Antonio Montoyay ROSA 38646 401.1 530.11 300.00 Office Visit 01/02/2011 10:15a [facility] Mariya Betancourt M.D. 58655 250.02 272.2 573.9 780.79 Office Visit 12/19/2010 9:30a [facility] Mariya Betancourt M.D. 35392 401.1 250.02 272.2 719.46 Office Visit 09/17/2010 9:15a [facility] Mariya Betancourt M.D. 92813 796.2 401.1 250.02 272.2 Office Visit 08/20/2010 9:30a [facility] Mariya Betancourt M.D. 15475 796.2 401.1 250.02 272.2 Office Visit 08/13/2010 9:15a [facility] Mariya Betancourt M.D. 10142 401.1 530.11 272.2 719.46 Office Visit 07/30/2010 9:15a [facility] Mariya Betancourt M.D. 62836 401.1 272.2 311 300.00 Office Visit 01/22/2010 11:15a [facility] Michael Montoya [facility] 43300 796.2 401.1 272.2 784.0 Office Visit 10/19/2009 9:30a [facility] Mariya Betancourt M.D. 81820 401.1 250.02 311 Office Visit 09/18/2009 10:00a [facility] Mariya Betancourt M.D. 79349 796.2 401.1 369.9 780.79 788.41 Office Visit 08/28/2009 9:30a [facility] Mariya Betancourt M.D. 90021 401.1 250.02 272.2 311 Office Visit 08/14/2009 9:30a [facility] Mariya Betancourt M.D. 21249 796.2 401.1 272.2 780.79 Office Visit 08/10/2009 11:00a [facility] Mariya Betancourt M.D. 48278 401.1 272.2 780.79 692.9 Office Visit 02/05/2009 12:00p [facility] Mariya Betancourt M.D. 53977 401.1 530.11 573.9 272.2 Plan of Care 08/26/2017 - Mariya Betancourt M.D.I10 Essential (primary) hypertensionComments: CHECK BP TIW ( PRN)F/U LABDIET AND FLUID COUNSELING LOW SODIUM DIETWT LOSSF/U LABSMOKING WULBOCVHAG77.65 Type 2 diabetes mellitus with wydazkojpylzeI05.2 Mixed hyperlipidemiaComments:DIET REVIEWED CONTINUE DIETWT LOSSF/U LAB FBWK21.0 Gastro-esophageal reflux disease with esophagitisComments:AVOID CAFFEINE, ETOH AND SPICY FOODSTUMS OR MYLANTA PRN CALL WITH PROBLEMS OR CONCERNSSMOKING MOZKTWAZOI99.9 Anxiety disorder, unspecifiedComments:COUNCELLING AND REASSURANCE RELAXATION TECHNIQUES DISCUSSEDCOUNSELED RE: STRESSORS IN LIFE AVOID ALLENERGY/HIGH CAFFEINE GWTYPHG33.00 Insomnia, unspecifiedComments: COUNCELLING AND REASSURANCE RELAXATION TECHNIQUES DISCUSSED COUNSELED RE: STRESSORS IN LIFE TYLENOLPM OR MOTRIN PM PRN DUR NEIFVILN25.10 Alcohol abuse , uncomplicatedComments:ETOH ABSTINENCECOUNCELLING AND WUBZKGVVKFYD24.210 Nicotine dependence, cigarettes, uncomplicatedComments:SMOKING CESSATION COUNCELLING DISCUSSION RE: CESSATION LWNJRGSQ59.93 Unspecified hearing loss, bilateralComments:OBSERVE SMOKING BWFAFZJGXI48.9 Abnormal finding of blood chemistry, unspecifiedComments:DIET COUNCELLINGFS QAC AND HS PRNCHECK HgA1cQ 6- 12 MON.D52.0 Dietary folate deficiency anemiaComments:COUNSELED RE DIET/ AVOID ALCOHOL USEF33.9 Major depressive disorder, recurrent, unspecifiedComments: COUNCELLING AND REASSURANCE RELAXATION TECHNIQUES DISCUSSED COUNSELED RE: STRESSORS IN LIFEN64.4 MastodyniaComments:WARM COMPRESS TYLENOL OR MOTRIN PRNRTC FOR F/UN62 Hypertrophy of breastComments:SAGCHJZC78.1 Testicular hypofunctionComments:COUNCELLING AND TUQGKHQQRFHH26.30 Alcoholic cirrhosis of liver without ascitesComments:ASYMPTOMATIC AND STABLE AVOID ETOH ABUSE F/ ULABR60.0 Localized edemaComments:ELEVATE LE PRNELASTIC STOCKING / BALJINDER WRAP PRNF/U LABK59.00 Constipation, unspecifiedComments:MOM OR MIRALAX PRNHIGH FIBER DIETINCREASE PO BEUNUF08.511 Pain in right shoulderComments:EXERCISE/HEAT / MESSAGE AVOID HEAVY LIFTINGTYLENOL OR MOTRIN PRN DUR RQUXDESK74.9 Vitamin D deficiency, unspecifiedComments:INCREASE EXPOSURE TO SUNREVIEW OF DIETL72.3 Sebaceous cystComments:KIJMUWUV59.2 PalpitationsNew Xrays:ECHO Stress TestComments:NVTSASMDEOLGDGPM77.01 Encounter for general adult medical exam w abnormal findings
== END 2017-08-28 19:25 | disposition short-term general hospital (02) ==
LOC: UCEAST 18:35
DX: T65.891A Toxic effect of other specified substances, accidental (unintentional), initial encounter (principal); Y92.009 Unspecified place in unspecified non-institutional (private) residence as the place of occurrence of the external cause; I10 Essential (primary) hypertension; K21.9 Gastro-esophageal reflux disease without esophagitis; F17.210 Nicotine dependence, cigarettes, uncomplicated
CPT/HCPCS: 99213; G0463

== ENCOUNTER 2017-08-28 19:28 | Emergency (ER) | payer MEDICARE, MEDICAID ==
[2017-08-28 20:00] LABS: ABS Basophils 0.1 10^3/ul (0-0.2); ABS Eosinophils 0.1 10^3/ul (0-0.6); ABS Lymphocytes 1.7 10^3/ul (1.0-4.8); ABS Monocytes 0.3 10^3/ul (0-0.8); ABS Neutrophils 2.6 10^3/ul (1.5-7.7); ABS Nucleated RBC 0 10^3/ul; Eosinophil % 2.9 % (0-6); Hematocrit 37 % (42-52); Hemoglobin 12.7 g/dl (14.0-18.0); Lymphocyte % 34.2 % (25-47); Mean Corpuscular HGB Conc 34 g/dl (31-36); Mean Corpuscular Hemoglobin 31 pg (27-31); Mean Corpuscular Volume 90 fL (80-94); Mean Platelet Volume 8 um3 (7.4-10.4); Nucleated Red Blood Cells % 0.1; Platelet Count 211 10^3/ul (150-450); Red Blood Count 4.11 10^6/ul (4.0-5.4); Red Cell Distribution Width 14 % (10.5-15); White Blood Count 4.8 10^3/ul (3.5-10.8)
[2017-08-28 20:16] LABS: EGFR Non-African American 51.1 (>60)
[2017-08-28 22:04] VITALS: BP 158/71
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
== END 2017-08-28 22:03 | disposition home or self-care (01) ==
LOC: ED 19:28
DX: T65.891A Toxic effect of other specified substances, accidental (unintentional), initial encounter (principal); R06.02 Shortness of breath; E11.9 Type 2 diabetes mellitus without complications; Z86.79 Personal history of other diseases of the circulatory system; Z87.19 Personal history of other diseases of the digestive system; Y92.9 Unspecified place or not applicable; F17.210 Nicotine dependence, cigarettes, uncomplicated
CPT/HCPCS: 36415; 80053; 80329; 84484; 85025; 93005; 99283; G0480

== ENCOUNTER 2019-05-19 01:41 | Emergency (ER) | payer MEDICARE, MEDICAID ==
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
--- OUTSIDE RECORDS SUMMARY | 2019-05-19 02:22 | XMS REPORT | Continuity of Care Document ---
:1950 External Reference #:[id number] Author Name Nico Menezes N.P. Address [address] [facility] [address] [place] [address] Care Team Providers Name Role Phone Mariya Betancourt MD - Family Medicine Care Team Information [employer] [phone] Problems Active Problems Provider Date Benign essential hypertension Mariya Betancourt M.D. Onset: 09/22/2011 Mixed hyperlipidemia Mariya Betancourt M.D. Onset: 09/22/2011 Malaise and fatigue Mariya Betancourt M.D. Onset: 09/22/2011 Anxiety state Mariya Betancourt M.D. Onset: 09/22/2011 Type II diabetes mellitus uncontrolled Mariya Betancourt M.D. Onset: 2011 Chronic pancreatitis Mariya Betancourt M.D. Onset: 09/22/2011 Tobacco user Mariya Betancourt M.D. Onset: 09/22/2011 Depressive disorder Mariya Betancourt M.D. Onset: 09/22/2011 Peptic reflux disease Michael Montoya Onset: 09/22/2011 Disease of liver Mariya Betancourt M.D. Onset: 09/22/2011 Arthralgia of the lower leg Mariya Betancourt M.D. Onset: 09/22/2011 Headache Michael Montoya Onset: 09/22/2011 Alcohol abuse Mariya Betancourt M.D. Onset: 09/22/2011 Osteoarthritis Mariya Betancourt M.D. Onset: 09/21/2012 Allergic rhinitis Mariya Betancourt M.D. Onset: 11/23/2012 Polyp of colon Sarah Lopez, ROSA Onset: 01/27/2014 Hearing loss Mariya Betancourt M.D. Onset: 10/31/2014 Essential hypertension Mariya Betancourt M.D. Onset: 04/03/2015 Major depressive disorder, single episode, Mariya Betancourt M.D. Onset: 04/03 unspecified Alcohol abuse, uncomplicated Mariya Betancourt M.D. Onset: 04/03/2015 Essential hypertension Mariya Betancourt M.D. Onset: 05/01/2015 Social History Type Date Description Comments Sex Unknown Tobacco Use Start: Unknown Current Cigarette Smoker pt has been smoking about 5 cigarettes a day since age 15 ETOH Use Currently consumes alcohol QUIT DRINKING 15 MONTHS AGO OF 05/27/17 Tobacco Use Start: Unknown Patient is a current smoker, smokes every day Smoking Status Reviewed: 02/07/19 Patient is a current smoker, smokes every day Allergies, Adverse Reactions, Alerts Description No Known Drug Allergies Medications Active Medications SIG Qnty Indications Ordering Date Provider Vitamin D3 1 cap by mouth 12caps E55.9 Mariya Betancourt 06/10/2018 [id number] every week M., M.D. Capsules Atenolol 1/2 tab by 90tabs I10 SerafinMariya souza 06/01/2018 100mg Tablets mouth twice a M., M.D. day Polyethylene Glycol use 1-2 capfuls 1054units K59.00 Mariya Betancourt 2015 3350 by mouth every M., M.D. 3350NF Powder day Spironolactone take one tablet 90tabs R60.0 SerafinMariya souza 01/17/2016 25mg by mouth once M., M.D. Tablets daily K70.30 Folic Acid take one tablet by 100tabs D52.0 Mariya Betancourt, 03/01/2014 400mcg Tablets mouth once daily M.D. Magnesium Oxide 1 tab by mouth 90tabs K21.0 Mariya Betancourt, 03/01/2014 400mg twice a day M.D. Tablets E83.42 Lipitor take one tablet by 90tabs E78.2 Serafin, Taylorbruce Hoskins, 04/20/2013 80mg Tablets mouth at bedtime M.D. Omeprazole take one capsule by 90caps K21.0 Serafin, Taylorbruce Hoskins, 12/24/[address] mouth once daily M.D. Clonidine HCL 1 by mouth twice a 180tabs I10 Serafin, Taylorbruce Hoskins, 10/10/2011 0.3mg Tablets day M.D. Fenofibrate Micronized take one capsule by 90caps E78.2 Serafin, Taylorbruce Hoskins, 10/10/2011 mouth every night M.D. 134mg Capsules Immunizations CPT Code Status Date Vaccine Lot # [id number] Given 05/06/2019 Flu Virus Vaccine, Quadrivalent, Slit Virus, Im [id number] Use [id number] Given 05/18/2018 Flu Vaccine 3+Yrs Old(Fluzone) [id number] Given 05/01/2015 Flu Vaccine [id number] 85680 Given 04/20/2014 Flu Vaccine [id number] Given 06/10/2012 Flu Vaccine [id number] Vital Signs Date Vital Result Comment 05/06/2019 1:54pm BP Systolic 125 mmHg BP Diastolic 59 mmHg Height 67 inches 5'7" Weight 138.00 lb BMI (Body Mass Index) 21.6 kg/m2 Heart Rate 60 /min Respiratory Rate 16 /min 02/08/2019 1:52pm BP Systolic 118 mmHg BP Diastolic 60 mmHg Height 67 inches 5'7" Weight 138.00 lb BMI (Body Mass Index) 21.6 kg/m2 Heart Rate 50 /min Respiratory Rate 16 /min Results Test Acquired Date Facility Test Result H/L Range Note Laboratory test 12/28/2018 [facility] Magnesium 1.3 mg/dL Low (1.7-2.4 ) finding [address] [facility] (607)- - Basic Metabolic 12/28/2018 [facility] Sodium 137 mmol/L (136-145) Panel [address] [facility] (607)- - Potassium 4.7 mmol/L (3.6-5.2) 1 Chloride 106 mmol/L (100-108) Co2 22 mmol/L (22-31) Anion Gap 9 mmol/L (7-16) Urea Nitrogen 16 mg/dL (7-24) Creatinine 1.17 mg/dL (0.80-1.30) BUN/Creat Ratio 13.7 RATIO (10.0-20.0) Glucose 83 mg/dL (70-99) Calcium 9.4 mg/dL (8.4-10.2) GFR >60 ml/min/1.73m2 (>59) GFR ( Amer) >60 ml/min/1.73m2 (>59) GFR Interpretation <SEE NOTE> 2 CBC With Diff 11/11/2018 [facility] WBC 5.7 10*3/uL (4.1-11.0) [address] [facility] (607)- - RBC 4.14 10*6/uL Low (4.60-6.10) HGB 13.0 g/dL Low (13.5-18.0) HCT 38.6 % Low (41.0-53.0) MCV 93.4 fL (80.0-95.0) MCH 31.4 pg (27.0-32.0) MCHC 33.7 g/dL (32.0-36.0) RDW 13.7 % (10.5-14.5) PLT 247 10*3/uL (150-450) MPV 8.6 fL (7.1-10.7) Neut % 62.0 % (35.0-75.0) Lymph % 29.6 % (16.0-52.0) [place] % 5.9 % (0.0-8.0) Eos % 1.6 % (0.0-5.0) Baso % 0.9 % (0.0-4.0) Neut # 3.6 10*3/uL (1.8-7.7) Lymph # 1.7 10*3/uL (1.2-4.8) [place] # 0.3 10*3/uL (0.0-0.8) Eos # 0.1 10*3/uL (0.0-0.5) Baso # 0.1 10*3/uL (0.0-0.2) CMP 11/11/2018 [facility] Sodium 138 mmol/L (136-145) [address] [facility] (607)- - Potassium 3.8 mmol/L (3.6-5.2) Chloride 105 mmol/L (100-108) Co2 28 mmol/L (22-31) Anion Gap 5 mmol/L Low (7-16) Urea Nitrogen 20 mg/dL (7-24) Creatinine 1.23 mg/dL (0.80-1.30) BUN/Creat Ratio 16.3 RATIO (10.0-20.0) Glucose 130 mg/dL High (70-99) Calcium 9.6 mg/dL (8.4-10.2) Total Protein 7.0 g/dL (6.4-8.2) Albumin 3.9 g/dL (3.2-4.5) Globulin 3.1 g/dL (2.7-4.3) Alb/Glob Ratio 1.3 RATIO Alkaline Phosphatase 53 U/L (45-117) Bilirubin,Total 0.6 mg/dL (0.0-1.0) Ast (Sgot) 23 U/L (11-39) Alt (SGPT) 15 U/L (12-78) GFR 59 ml/min/1.73m2 Low (>59) GFR ( Amer) >60 ml/min/1.73m2 (>59) GFR Interpretation <SEE NOTE> 3 Lipid 11/11/2018 [facility] Cholesterol @ 121 mg/dL (0-200) [address] [facility] [facility] (769)- - Triglyceride @ 61 mg/dL (30-200) HDL Cholesterol @ 44 mg/dL (>40) 4 Chol/HDL Ratio 2.8 RATIO 5 LDL Chol (Calc) 65 mg/dL (<130) 6 Laboratory test 11/11/2018 [facility] Vitamin B12 @ 342 pg/mL (193-986 ) finding [address] [place] (076)- - Hemoglobin A1c 11/11/2018 [facility] Hemoglobin A1c @ 5.1 % (4.0-6.0) 7 [address] [place] (550)- - Est Average Glucose 100 mg/dL Laboratory test 11/11/2018 [facility] Folate @ >20.0 ng/mL High (3.1- 17.5) finding 113 Effective [facility] (037)- - Magnesium 0.8 mg/dL Low (1.7-2.4) 8 25 Hydroxy Vit D @ 36 ng/mL (31-100) 9 TSH,Ultrasensitive @ 0.829 mIU/L (0.360-4.170) Laboratory test 11/05/2018 [facility] SEE RESULT 10, 11 finding Pathology BELOW 1 SLIGHT HEMOLYSIS 2 NORMAL KIDNEY FUNCTION OR MILD DISEASE - GFR >OR= 60 CHRONIC KIDNEY DISEASE - GFR 15 - 59 RENAL FAILURE - GFR <15 Est. GFR calculation based on the MDRD study equation, which assumes a steady state for creatinine. Est. GFR should not be used for medication dosing. 3 NORMAL KIDNEY FUNCTION OR MILD DISEASE - GFR >OR= 60 CHRONIC KIDNEY DISEASE - GFR 15 - 59 RENAL FAILURE - GFR <15 Est. GFR calculation based on the MDRD study equation, which assumes a steady state for creatinine. Est. GFR should not be used for medication dosing. 4 PER NCEP ATP III GUIDELINES: RESULTS LOWER THAN 40 MG/DL ARE SUGGESTIVE OF INCREASED RISK FOR CORONARY ARTERY DISEASE. RESULTS > OR = TO 60 MG/DL ARE CONSIDERED A NEGATIVE RISK FACTOR. 5 INTERPRETATION OF CHOL-HDL RATIO CHD RISK FEMALE MALE VERY HIGH >8.3 >14.3 HIGH 5.6- 8.3 6.7- 14.3 AVERAGE 3.7- 5.6 4.0- 6.7 BELOW AVERAGE 2.5- 3.7 2.7- 4.0 PROTECTED <2.5 <2.7 6 PER NCEP ATP III GUIDELINES: OPTIMAL < 100 NEAR OPTIMAL 100 - 129 BORDERLINE HIGH 130 - 159 HIGH 160 - 189 VERY HIGH > 189 7 Performed using KartMe immunoassay. Care must be taken when interpreting HbA1c results in patients with a hemoglobin variant or decreased erythrocyte lifespan. Values 5.7 - 6.4% suggest prediabetes. Values >=6.5% are diagnostic for diabetes. REFERENCE: DIABETES CARE 2018: 41(S13-S27). 8 CALLED TO RE [id number] AT 0910 [place] [address] 9 A REVIEW OF THE LITERATURE SUGGESTS THE FOLLOWING RANGES FOR THE CLASSIFICATION OF 25-OH VITAMIN D STATUS: VITAMIN D STATUS 25-OH VITAMIN D DEFICIENCY <20 NG/ML INSUFFICIENCY 20-30 NG/ML SUFFICIENCY 31 - 100 NG/ML TOXICITY > 100 NG/ML A PEDIATRIC REFERENCE RANGE HAS NOT BEEN ESTABLISHED USING THIS METHOD. 10 [id number] SEE RESULT BELOW Name: VERONIKABILLY : [address]: Ike Ritchie DO Acct: [id number] Unit: [id number] AGE: 68 Location: [facility] Re11/05/18 SEX: M Status: DEP REF SPEC: [id number] GAVIN: 11/05/18- SUBM DR: Ike Ritchie DO REQ: [id number] RECD: 11/05/18 STATUS: BING SOLIS DR: Mariya Betancourt MD _ ORDERED: LEVEL 4 COMMENTS: [id number] FINAL DIAGNOSIS Colon, descending, biopsy: -- Hyperplastic polyp. CLINICAL HISTORY History of polyps POST-OPERATIVE DIAGNOSIS Colonoscopy: fair prep; to terminal ileum; descending biopsy polypectomy; internal hemorrhoid GROSS DESCRIPTION The specimen is received in formalin labeled, Biopsy Descending Colon Polyp, and consists of a 0.4 x 0.3 x 0.2 cm adrian-pink polypoid soft tissue fragment which is submitted entirely in one cassette. Signed by and Reported on: Steve Gomez MD 12/22 1054 END OF REPORT DEPARTMENT OF PATHOLOGY, [address] [place] [address] Steve Gomez M.D. Director [facility] # [id number] Procedures Date Code Description Status 11/11/2018 17569 EKG Completed 09/17/2018 80329016 Colonoscopy Completed 07/06/2013 77554306 Colonoscopy Completed Medical Devices Description No Information Available Encounters Type Date Location Provider Dx Diagnosis Office Visit 05/06/2019 [facility] Nico Menezes, E78.2 Mixed hyperlipidemia 2:00p N.P. E11.65 Type 2 diabetes mellitus with hyperglycemia I10 Essential (primary) hypertension E55.9 Vitamin D deficiency, unspecified J44.9 Chronic obstructive pulmonary disease, unspecified F10.21 Alcohol dependence, in remission K70.30 Alcoholic cirrhosis of liver without ascites R00.1 Bradycardia, unspecified K21.0 Gastro-esophageal reflux disease with esophagitis N64.4 Mastodynia E29.1 Testicular hypofunction F17.210 Nicotine dependence, cigarettes, uncomplicated R00.2 Palpitations N62 Hypertrophy of breast F41.9 Anxiety disorder, unspecified L72.3 Sebaceous cyst F33.9 Major depressive disorder, recurrent, unspecified D52.0 Dietary folate deficiency anemia H91.93 Unspecified hearing loss, bilateral E83.42 Hypomagnesemia K59.00 Constipation, unspecified M25.511 Pain in right shoulder R60.0 Localized edema G47.00 Insomnia, unspecified Z23 Encounter for immunization Office Visit 02/08/2019 1:45p [place] [facility] Mariya Betancourt E78.2 Mixed hyperlipidemia Chandler Hoskins E11.65 Type 2 diabetes mellitus with hyperglycemia I10 Essential (primary) hypertension E55.9 Vitamin D deficiency, unspecified J44.9 Chronic obstructive pulmonary disease, unspecified F10.21 Alcohol dependence, in remission K70.30 Alcoholic cirrhosis of liver without ascites R00.1 Bradycardia, unspecified K21.0 Gastro-esophageal reflux disease with esophagitis N64.4 Mastodynia E29.1 Testicular hypofunction F17.210 Nicotine dependence, cigarettes, uncomplicated R00.2 Palpitations N62 Hypertrophy of breast F41.9 Anxiety disorder, unspecified L72.3 Sebaceous cyst F33.9 Major depressive disorder, recurrent, unspecified D52.0 Dietary folate deficiency anemia H91.93 Unspecified hearing loss, bilateral E83.42 Hypomagnesemia K59.00 Constipation, unspecified M25.511 Pain in right shoulder R60.0 Localized edema G47.00 Insomnia, unspecified Office Visit 01/11/2019 2:00p [facility] Mariya Betancourt E78.2 Mixed hyperlipidemia Chandler Hoskins E11.65 Type 2 diabetes mellitus with hyperglycemia I10 Essential (primary) hypertension E55.9 Vitamin D deficiency, unspecified J44.9 Chronic obstructive pulmonary disease, unspecified F10.21 Alcohol dependence, in remission K70.30 Alcoholic cirrhosis of liver without ascites R00.1 Bradycardia, unspecified K21.0 Gastro-esophageal reflux disease with esophagitis N64.4 Mastodynia E29.1 Testicular hypofunction F17.210 Nicotine dependence, cigarettes, uncomplicated R00.2 Palpitations N62 Hypertrophy of breast F41.9 Anxiety disorder, unspecified L72.3 Sebaceous cyst F33.9 Major depressive disorder, recurrent, unspecified D52.0 Dietary folate deficiency anemia H91.93 Unspecified hearing loss, bilateral E83.42 Hypomagnesemia K59.00 Constipation, unspecified M25.511 Pain in right shoulder R60.0 Localized edema G47.00 Insomnia, unspecified Office Visit 12/28/2018 1:45p [facility] E78.2 Mixed hyperlipidemia Chandler Hoskins E11.65 Type 2 diabetes mellitus with hyperglycemia I10 Essential (primary) hypertension E55.9 Vitamin D deficiency, unspecified J44.9 Chronic obstructive pulmonary disease, unspecified F10.21 Alcohol dependence, in remission K70.30 Alcoholic cirrhosis of liver without ascites R00.1 Bradycardia, unspecified K21.0 Gastro-esophageal reflux disease with esophagitis N64.4 Mastodynia E29.1 Testicular hypofunction F17.210 Nicotine dependence, cigarettes, uncomplicated R00.2 Palpitations N62 Hypertrophy of breast F41.9 Anxiety disorder, unspecified L72.3 Sebaceous cyst F33.9 Major depressive disorder, recurrent, unspecified D52.0 Dietary folate deficiency anemia H91.93 Unspecified hearing loss, bilateral E83.42 Hypomagnesemia K59.00 Constipation, unspecified M25.511 Pain in right shoulder R60.0 Localized edema G47.00 Insomnia, unspecified Office Visit 11/25/2018 1:45p [facility] E78.2 Mixed hyperlipidemia Chandler Hoskins E11.65 Type 2 diabetes mellitus with hyperglycemia I10 Essential (primary) hypertension E55.9 Vitamin D deficiency, unspecified J44.9 Chronic obstructive pulmonary disease, unspecified F10.21 Alcohol dependence, in remission K70.30 Alcoholic cirrhosis of liver without ascites R00.1 Bradycardia, unspecified K21.0 Gastro-esophageal reflux disease with esophagitis N64.4 Mastodynia E29.1 Testicular hypofunction F17.210 Nicotine dependence, cigarettes, uncomplicated R00.2 Palpitations N62 Hypertrophy of breast F41.9 Anxiety disorder, unspecified L72.3 Sebaceous cyst F33.9 Major depressive disorder, recurrent, unspecified D52.0 Dietary folate deficiency anemia H91.93 Unspecified hearing loss, bilateral E83.42 Hypomagnesemia K59.00 Constipation, unspecified M25.511 Pain in right shoulder R60.0 Localized edema G47.00 Insomnia, unspecified Office Visit 11/11/2018 1:15p [place] [facility] Mariya Betancourt E78.2 Mixed hyperlipidemia Chandler Hoskins E11.65 Type 2 diabetes mellitus with hyperglycemia I10 Essential (primary) hypertension E55.9 Vitamin D deficiency, unspecified J44.9 Chronic obstructive pulmonary disease, unspecified F10.21 Alcohol dependence, in remission K70.30 Alcoholic cirrhosis of liver without ascites Z68.22 Body mass index (BMI) 22.0-22.9, adult R00.1 Bradycardia, unspecified K21.0 Gastro-esophageal reflux disease with esophagitis N64.4 Mastodynia E29.1 Testicular hypofunction F17.210 Nicotine dependence, cigarettes, uncomplicated R00.2 Palpitations N62 Hypertrophy of breast F41.9 Anxiety disorder, unspecified L72.3 Sebaceous cyst F33.9 Major depressive disorder, recurrent, unspecified D52.0 Dietary folate deficiency anemia H91.93 Unspecified hearing loss, bilateral E83.42 Hypomagnesemia K59.00 Constipation, unspecified M25.511 Pain in right shoulder R60.0 Localized edema G47.00 Insomnia, unspecified Z00.01 Encounter for general adult medical exam w abnormal findings Assessments Date Code Description Provider 05/06/2019 E78.2 Mixed hyperlipidemia Nico Menezes N.P. 05/06/2019 E11.65 Type 2 diabetes mellitus with hyperglycemia Nico Menezes N.P. 05/06/2019 I10 Essential (primary) hypertension Nico Menezes N.P. 05/06/2019 E55.9 Vitamin D deficiency, unspecified Nico Menezes N.P. 05/06/2019 J44.9 Chronic obstructive pulmonary disease, Nico Menezes, N.P. unspecified 05/06/2019 F10.21 Alcohol dependence, in remission Nico Menezes N.P. 05/06/2019 K70.30 Alcoholic cirrhosis of liver without ascites Nico Menezes N.P. 05/06/2019 R00.1 Bradycardia, unspecified Nico Menezes N.P. 05/06/2019 K21.0 Gastro-esophageal reflux disease with Nioc Menezes N.P. esophagitis 05/06/2019 N64.4 Mastodynia Nico Menezes N.P. 05/06/2019 E29.1 Testicular hypofunction Nico Menezes, N.P. 05/06/2019 F17.210 Nicotine dependence, cigarettes, Nico Menezes, N.P. uncomplicated 05/06/2019 R00.2 Palpitations Nico Menezes, N.P. 05/06/2019 N62 Hypertrophy of breast Nico Menezes, N.P. 05/06/2019 F41.9 Anxiety disorder, unspecified Nico Menezes, N.P. 05/06/2019 L72.3 Sebaceous cyst Nico Menezes, N.P. 05/06/2019 F33.9 Major depressive disorder, recurrent, Nico Menezes, N.P. unspecified 05/06/2019 D52.0 Dietary folate deficiency anemia Nico Menezes, N.P. 05/06/2019 H91.93 Unspecified hearing loss, bilateral Nico Menezes, N.P. 05/06/2019 E83.42 Hypomagnesemia Nico Menezes N.P. 05/06/2019 K59.00 Constipation, unspecified Nico Menezes N.P. 05/06/2019 M25.511 Pain in right shoulder Nico Menezes N.P. 05/06/2019 R60.0 Localized edema Nico Menezes N.P. 05/06/2019 G47.00 Insomnia, unspecified Nico Menezes, N.P. 05/06/2019 Z23 Encounter for immunization Nico Menezes, N.P. 02/08/2019 E78.2 Mixed hyperlipidemia Mariya Betancourt M.D. 02/08/2019 E11.65 Type 2 diabetes mellitus with hyperglycemia Mariya Betancourt M.D. 02/08/2019 I10 Essential (primary) hypertension Mariya Betancourt M.D. 02/08/2019 E55.9 Vitamin D deficiency, unspecified Mariya Betancourt M.D. 02/08/2019 J44.9 Chronic obstructive pulmonary disease, Mariya Betancourt M.D. unspecified 02/08/2019 F10.21 Alcohol dependence, in remission Mariya Betancourt M.D. 02/08/2019 K70.30 Alcoholic cirrhosis of liver without ascites Mariya Betancourt M.D. 02/08/2019 R00.1 Bradycardia, unspecified Mariya Betancourt M.D. 02/08/2019 K21.0 Gastro-esophageal reflux disease with Mariya Betancourt M.D. esophagitis 02/08/2019 N64.4 Mastodynia Mariya Betancourt M.D. 02/08/2019 E29.1 Testicular hypofunction Mariya Betancourt M.D. 02/08/2019 F17.210 Nicotine dependence, cigarettes, Mariya Betancourt M.D. uncomplicated 02/08/2019 R00.2 Palpitations Mariya Betancourt M.D. 02/08/2019 N62 Hypertrophy of breast Mariya Betancourt M.D. 02/08/2019 F41.9 Anxiety disorder, unspecified Mariya Betancourt M.D. 02/08/2019 L72.3 Sebaceous cyst Mariya Betancourt M.D. 02/08/2019 F33.9 Major depressive disorder, recurrent, Mariya Betancourt M.D. unspecified 02/08/2019 D52.0 Dietary folate deficiency anemia Mariya Betancourt M.D. 02/08/2019 H91.93 Unspecified hearing loss, bilateral Mariya Betancourt M.D. 02/08/2019 E83.42 Hypomagnesemia Mariya Betancourt M.D. 02/08/2019 K59.00 Constipation, unspecified Mariya Betancourt M.D. 02/08/2019 M25.511 Pain in right shoulder Mariya Betancourt M.D. 02/08/2019 R60.0 Localized edema Mariya Betancourt M.D. 02/08/2019 G47.00 Insomnia, unspecified Mariya Betancourt M.D. 01/11/2019 E78.2 Mixed hyperlipidemia Mariya Betancourt M.D. 01/11/2019 E11.65 Type 2 diabetes mellitus with hyperglycemia Mariya Betancourt M.D. 01/11/2019 I10 Essential (primary) hypertension Mariya Betancourt M.D. 01/11/2019 E55.9 Vitamin D deficiency, unspecified Mariya Betancourt M.D. 01/11/2019 J44.9 Chronic obstructive pulmonary disease, Mariya Betancourt M.D. unspecified 01/11/2019 F10.21 Alcohol dependence, in remission Mariya Betancourt M.D. 01/11/2019 K70.30 Alcoholic cirrhosis of liver without ascites Mariya Betancourt M.D. 01/11/2019 R00.1 Bradycardia, unspecified Mariya Betancourt M.D. 01/11/2019 K21.0 Gastro-esophageal reflux disease with Mariya Betancourt M.D. esophagitis 01/11/2019 N64.4 Mastodynia Mariya Betancourt M.D. 01/11/2019 E29.1 Testicular hypofunction Mariya Betancourt M.D. 01/11/2019 F17.210 Nicotine dependence, cigarettes, Mariya Betancourt M.D. uncomplicated 01/11/2019 R00.2 Palpitations Mariya Betancourt M.D. 01/11/2019 N62 Hypertrophy of breast Mariya Betancourt M.D. 01/11/2019 F41.9 Anxiety disorder, unspecified Mariya Betancourt M.D. 01/11/2019 L72.3 Sebaceous cyst Mariya Betancourt M.D. 01/11/2019 F33.9 Major depressive disorder, recurrent, Mariya Betancourt M.D. unspecified 01/11/2019 D52.0 Dietary folate deficiency anemia Mariya Betancourt M.D. 01/11/2019 H91.93 Unspecified hearing loss, bilateral Mariya Betancourt M.D. 01/11/2019 E83.42 Hypomagnesemia Mariya Betancourt M.D. 01/11/2019 K59.00 Constipation, unspecified Mariya Betancourt M.D. 01/11/2019 M25.511 Pain in right shoulder Mariya Betancourt M.D. 01/11/2019 R60.0 Localized edema Mariya Betancourt M.D. 01/11/2019 G47.00 Insomnia, unspecified Mariya Betancourt M.D. 12/28/2018 E78.2 Mixed hyperlipidemia Mariya Betancourt M.D. 12/28/2018 E11.65 Type 2 diabetes mellitus with hyperglycemia Mariya Betancourt M.D. 12/28/2018 I10 Essential (primary) hypertension Mariya Betancourt M.D. 12/28/2018 E55.9 Vitamin D deficiency, unspecified Mariya Betancourt M.D. 12/28/2018 J44.9 Chronic obstructive pulmonary disease, Mariya Betancourt M.D. unspecified 12/28/2018 F10.21 Alcohol dependence, in remission Mariya Betancourt M.D. 12/28/2018 K70.30 Alcoholic cirrhosis of liver without ascites Mariya Betancourt M.D. 12/28/2018 R00.1 Bradycardia, unspecified Mariya Betancourt M.D. 12/28/2018 K21.0 Gastro-esophageal reflux disease with Mariya Betancourt M.D. esophagitis 12/28/2018 N64.4 Mastodynia Mariya Betancourt M.D. 12/28/2018 E29.1 Testicular hypofunction Mariya Betancuort M.D. 12/28/2018 F17.210 Nicotine dependence, cigarettes, Mariya Betancourt M.D. uncomplicated 12/28/2018 R00.2 Palpitations Mariya Betancourt M.D. 12/28/2018 N62 Hypertrophy of breast Mariya Betancourt M.D. 12/28/2018 F41.9 Anxiety disorder, unspecified Mariya Betancourt M.D. 12/28/2018 L72.3 Sebaceous cyst Mariya Betancourt M.D. 12/28/2018 F33.9 Major depressive disorder, recurrent, Mariya Betancourt M.D. unspecified 12/28/2018 D52.0 Dietary folate deficiency anemia Mariya Betancourt M.D. 12/28/2018 H91.93 Unspecified hearing loss, bilateral Mariya Betancourt M.D. 12/28/2018 E83.42 Hypomagnesemia Mariya Betancourt M.D. 12/28/2018 K59.00 Constipation, unspecified Mariya Betancourt M.D. 12/28/2018 M25.511 Pain in right shoulder Mariya Betancourt M.D. 12/28/2018 R60.0 Localized edema Mariya Betancourt M.D. 12/28/2018 G47.00 Insomnia, unspecified Mariya Betancourt M.D. 11/25/2018 E78.2 Mixed hyperlipidemia Mariya Betancourt M.D. 11/25/2018 E11.65 Type 2 diabetes mellitus with hyperglycemia Mariya Betancourt M.D. 11/25/2018 I10 Essential (primary) hypertension Mariya Betancourt M.D. 11/25/2018 E55.9 Vitamin D deficiency, unspecified Mariya Betancourt M.D. 11/25/2018 J44.9 Chronic obstructive pulmonary disease, Mariya Betancourt M.D. unspecified 11/25/2018 F10.21 Alcohol dependence, in remission Mariya Betancourt M.D. 11/25/2018 K70.30 Alcoholic cirrhosis of liver without ascites Mariya Betancourt M.D. 11/25/2018 R00.1 Bradycardia, unspecified Mariya Betancourt M.D. 11/25/2018 K21.0 Gastro-esophageal reflux disease with Mariya Betancourt M.D. esophagitis 11/25/2018 N64.4 Mastodynia Mariya Betancourt M.D. 11/25/2018 E29.1 Testicular hypofunction Mariya Betancourt M.D. 11/25/2018 F17.210 Nicotine dependence, cigarettes, Mariya Betancourt M.D. uncomplicated 11/25/2018 R00.2 Palpitations Mariya Betancourt M.D. 11/25/2018 N62 Hypertrophy of breast Mariya Betancourt M.D. 11/25/2018 F41.9 Anxiety disorder, unspecified Mariya Betancourt M.D. 11/25/2018 L72.3 Sebaceous cyst Mariya Betancourt M.D. 11/25/2018 F33.9 Major depressive disorder, recurrent, Mariya Betancourt M.D. unspecified 11/25/2018 D52.0 Dietary folate deficiency anemia Mariya Betancourt M.D. 11/25/2018 H91.93 Unspecified hearing loss, bilateral Mariya Betancourt M.D. 11/25/2018 E83.42 Hypomagnesemia Mariya Betancourt M.D. 11/25/2018 K59.00 Constipation, unspecified Mariya Betancourt M.D. 11/25/2018 M25.511 Pain in right shoulder Mariya Betancourt M.D. 11/25/2018 R60.0 Localized edema Mariya Betancourt M.D. 11/25/2018 G47.00 Insomnia, unspecified Mariya Betancourt M.D. 11/11/2018 E78.2 Mixed hyperlipidemia Mariya Betancourt M.D. 11/11/2018 E11.65 Type 2 diabetes mellitus with hyperglycemia Mariya Betancourt M.D. 11/11/2018 I10 Essential (primary) hypertension Mariya Betancourt M.D. 11/11/2018 E55.9 Vitamin D deficiency, unspecified Mariya Betancourt M.D. 11/11/2018 J44.9 Chronic obstructive pulmonary disease, Mariya Betancourt M.D. unspecified 11/11/2018 F10.21 Alcohol dependence, in remission Mariya Betancourt M.D. 11/11/2018 K70.30 Alcoholic cirrhosis of liver without ascites Mariya Betancourt M.D. 11/11/2018 Z68.22 Body mass index (BMI) 22.0-22.9, adult Mariya Betancourt M.D. 11/11/2018 R00.1 Bradycardia, unspecified Mariya Betancourt M.D. 11/11/2018 K21.0 Gastro-esophageal reflux disease with Mariya Betancourt M.D. esophagitis 11/11/2018 N64.4 Mastodynia Mariya Betancourt M.D. 11/11/2018 E29.1 Testicular hypofunction Mairya Betancourt M.D. 11/11/2018 F17.210 Nicotine dependence, cigarettes, Mariya Betancourt M.D. uncomplicated 11/11/2018 R00.2 Palpitations Mariya Betancourt M.D. 11/11/2018 N62 Hypertrophy of breast Mariya Betancourt M.D. 11/11/2018 F41.9 Anxiety disorder, unspecified Mariya Betancourt M.D. 11/11/2018 L72.3 Sebaceous cyst Mariya Betancourt M.D. 11/11/2018 F33.9 Major depressive disorder, recurrent, Mariya Betancourt M.D. unspecified 11/11/2018 D52.0 Dietary folate deficiency anemia Mariya Betancourt M.D. 11/11/2018 H91.93 Unspecified hearing loss, bilateral Mariya Betancourt M.D. 11/11/2018 E83.42 Hypomagnesemia Mariya Betancourt M.D. 11/11/2018 K59.00 Constipation, unspecified Mariya Betancourt M.D. 11/11/2018 M25.511 Pain in right shoulder Mariya Betancourt M.D. 11/11/2018 R60.0 Localized edema Mariya Betancourt M.D. 11/11/2018 G47.00 Insomnia, unspecified Mariya Betancourt M.D. 11/11/2018 Z00.01 Encounter for general adult medical Mariya Betancourt M.D. examination with abnorma Plan of Treatment No Information Available Functional Status Functional Condition Comment Date Status Glasses Active Bifocal glasses Active Mental Status Description No Information Available Referrals Description No Information Available
[2019-05-19] MEDS: NS 0.9% 1000 ML** 1,000 ML IV ONE (02:24)
[2019-05-19] MEDS: Ketorolac INJ* 30 MG/ML 1 ML VIAL IV PUSH ONE (02:24)
[2019-05-19 03:04] LABS: INR 1.15 (0.82-1.09)
[2019-05-19 03:06] LABS: ABS Basophils 0.1 10^3/ul (0-0.2); ABS Eosinophils 0.1 10^3/ul (0-0.6); ABS Lymphocytes 1.5 10^3/ul (1.0-4.8); ABS Monocytes 0.6 10^3/ul (0-0.8); ABS Neutrophils 6.2 10^3/ul (1.5-7.7); Eosinophil % 0.9 %; Hematocrit 38 % (42-52); Hemoglobin 13.2 g/dL (14.0-18.0); Lymphocyte % 17.3 %; Mean Corpuscular HGB Conc 35 g/dL (31-36); Mean Corpuscular Hemoglobin 32 pg (27-31); Mean Corpuscular Volume 91 fL (80-94); Mean Platelet Volume 7.5 fL (7.4-10.4); Platelet Count 254 10^3/uL (150-450); Red Blood Count 4.19 10^6 /uL (4.18-5.48); Red Cell Distribution Width 14 % (10-15); White Blood Count 8.4 10^3/uL (3.5-10.8)
[2019-05-19 03:16] LABS: Albumin 4.1 g/dL (3.2-5.2); Albumin/Globulin Ratio 1.5 (1-3); BUN/Creatinine Ratio 20.9 (8-20); Calcium 9.4 mg/dL (8.6-10.3); EGFR African American 61.5 (>60); EGFR Non-African American 50.8 (>60); Globulin 2.8 g/dL (2-4); Potassium 3.9 mmol/L (3.5-5.0); Total Bilirubin 0.9 mg/dL (0.2-1.0); Total Protein 6.9 g/dL (6.4-8.9)
[2019-05-19 03:17] LABS: Troponin I 0.01 ng/mL (<0.04)
[2019-05-19] MEDS: Iodixanol* (CONTRAST) 320 MG/ML 100 ML SDV IV ONE (03:47)
[2019-05-19] MEDS: fentaNYL* 50 MCG/ML 2 ML VIAL (100 MCG VIAL) IV SLOW PU ONE (05:38)
[2019-05-19 05:41] VITALS: BP 143/76
[2019-05-19] MEDS ORDERED: ATORVASTATIN CALCIUM 80 MG PO SCH (09:00)
[2019-05-19] MEDS ORDERED: FOLIC ACID 400 MCG PO SCH (09:00)
[2019-05-19] MEDS ORDERED: CLONIDINE HCL 0.3 MG PO SCH (09:00)
[2019-05-19] MEDS ORDERED: FENOFIBRATE 134 MG PO SCH (09:00)
[2019-05-19] MEDS ORDERED: MAGNESIUM OXIDE 400 MG PO SCH (09:00)
[2019-05-19] MEDS ORDERED: Atenolol TAB* 50 MG PO SCH (09:00)
[2019-05-19] MEDS ORDERED: Omeprazole CAP (NF) 20 MG CAP.DR PO SCH (09:00)
[2019-05-19] MEDS ORDERED: Spironolactone TAB* 25 MG PO SCH (09:00)
== END 2019-05-19 05:20 | disposition home or self-care (01) ==
LOC: ED 01:41
DX: S22.31XA Fracture of one rib, right side, initial encounter for closed fracture (principal); W07.XXXA Fall from chair, initial encounter; Y92.9 Unspecified place or not applicable; E11.9 Type 2 diabetes mellitus without complications; E03.9 Hypothyroidism, unspecified; E78.5 Hyperlipidemia, unspecified; I10 Essential (primary) hypertension; K21.9 Gastro-esophageal reflux disease without esophagitis; F32.9 Major depressive disorder, single episode, unspecified; F17.210 Nicotine dependence, cigarettes, uncomplicated; K74.60 Unspecified cirrhosis of liver; N62 Hypertrophy of breast
CPT/HCPCS: 36415; 71275; 80053; 83605; 83880; 84484; 85025; 85610; 87040; 96361; 96374; 96375; 99283; J1885; J3010; Q9967

== ENCOUNTER 2019-08-10 16:03 | Emergency (ER) | payer MEDICARE ==
--- OUTSIDE RECORDS SUMMARY | 2019-08-10 16:30 | XMS REPORT | Continuity of Care Document ---
:1950 External Reference #:[id number] Author Name Mariya Betancourt M.D. Address [address] [place] [address] Care Team Providers Name Role Phone Mariya Betancourt MD - Family Medicine Care Team Information Liquor Tester [phone] Problems Active Problems Provider Date Benign essential [...] Onset: 11/23/2012 Polyp of colon Sarah Lopez, HAND DRILLER Onset: 01/27/2014 Hearing loss Mariya Betancourt M.D. [...] SIG Qnty Indications Ordering Date Provider Vitamin D 1 cap by mouth 12caps E55.9 [facility] donte 08/04/2019 (Ergocalciferol) every week M., M.D. 1.25mg (66561 Ut) Capsules Atenolol 1/2 tab by 90tabs I10 SerafinMariya souza 06/01/2018 100mg Tablets mouth twice a M., M.D. day Polyethylene Glycol use 1-2 capfuls 1054units K59.00 Serafin, donte 2015 3350 by mouth every M., M.D. 3350NF Powder day Spironolactone take one tablet 90tabs R60.0 [facility] donte 01/17/2016 25mg by mouth once M., M.D. Tablets daily K70.30 Folic Acid take one tablet by 100tabs D52.0 Mariya Betancourt, 03/01/2014 400mcg Tablets mouth once daily M.D. Magnesium Oxide 1 tab by mouth 90tabs K21.0 SerafinTaylor souzabruce Jessica, 03/01/2014 400mg twice a day M.D. Tablets E83.42 Lipitor take one tablet by 90tabs E78.2 SerafinTaylorbruce Jessica, 04/20/2013 80mg Tablets mouth at bedtime M.D. Omeprazole take one capsule by 90caps K21.0 Serafin, Taylorbruce Hoskins, 12/24/[address] mouth once daily M.D. Clonidine HCL 1 by mouth twice a 180tabs I10 SerafinTaylorbruce Hoskins, 10/10/2011 0.3mg Tablets day M.D. Fenofibrate Micronized take one capsule by 90caps E78.2 Serafin, Taylorbruce Jessica, 10/10/2011 mouth every night M.D. 134mg Capsules Immunizations CPT Code Status Date Vaccine Lot # 32312 Given 05/06/2019 Flu Virus Vaccine, Quadrivalent, Slit Virus, Im [id number] Use [id number] Given 05/18/2018 Flu Vaccine 3+Yrs Old(Fluzone) [id number] Given 05/01/2015 Flu Vaccine [id number] Given 04/20/2014 Flu Vaccine [id number] 05232 Given 06/10/2012 Flu Vaccine [id number] Vital Signs Date Vital Result Comment 08/04/2019 2:41pm BP Systolic 128 mmHg BP Diastolic 76 mmHg Height 67 inches 5'7" Weight 139.00 lb BMI (Body Mass Index) 21.8 kg/m2 05/06/2019 1:54pm BP Systolic 125 mmHg BP Diastolic 59 mmHg Height 67 inches 5'7" Weight 138.00 lb BMI (Body Mass Index) 21.6 kg/m2 Heart Rate 60 /min Respiratory Rate 16 /min Results Test Acquired Date Facility Test Result H/L Range Note Laboratory test 05/19/2019 [facility] Lactic Acid 0.9 mmol/L Normal 0.5-2.0 1 finding Inr/Protime 05/19/2019 [facility] Inr 1.15 High 0.82-1.09 2 CBC Auto Diff 05/19/2019 [facility] White Blood 8.4 10^3/uL Normal 3.5-10.8 Count Red Blood Count 4.19 10^6/uL Normal 4.18-5.48 Hemoglobin 13.2 g/dL Low 14.0-18.0 Hematocrit 38 % Low 42-52 Mean Corpuscular Volume 91 fL Normal 80-94 Mean Corpuscular Hemoglobin 32 pg High 27-31 Mean Corpuscular HGB Conc 35 g/dL Normal 31-36 Red Cell Distribution Width 14 % Normal 10-15 Platelet Count 254 10^3/uL Normal 150-450 Mean Platelet Volume 7.5 fL Normal 7.4-10.4 Abs Neutrophils 6.2 10^3/uL Normal 1.5-7.7 Abs Lymphocytes 1.5 10^3/uL Normal 1.0-4.8 Abs Monocytes 0.6 10^3/uL Normal 0-0.8 Abs Eosinophils 0.1 10^3/uL Normal 0-0.6 Abs Basophils 0.1 10^3/uL Normal 0-0.2 Abs Nucleated RBC 0.0 10^3/uL Granulocyte % 73.5 % Lymphocyte % 17.3 % Monocyte % 7.6 % Eosinophil % 0.9 % Basophil % 0.7 % Nucleated Red Blood Cells % 0.0 Laboratory test 05/19/2019 [facility] B-Type Natriuretic 29 pg/mL <= 100 finding Peptide BNP Comp Metabolic 05/19/2019 [facility] Sodium 131 mmol/L Low 135-145 Panel Potassium 3.9 mmol/L Normal 3.5-5.0 Chloride 103 mmol/L Normal 101-111 Co2 Carbon Dioxide 20 mmol/L Low 22-32 Anion Gap 8 mmol/L Normal 2-11 Glucose 97 mg/dL Normal 70-100 Blood Urea Nitrogen 29 mg/dL High 6-24 Creatinine 1.39 mg/dL High 0.67-1.17 BUN/Creatinine Ratio 20.9 High 8-20 Calcium 9.4 mg/dL Normal 8.6-10.3 Total Protein 6.9 g/dL Normal 6.4-8.9 Albumin 4.1 g/dL Normal 3.2-5.2 Globulin 2.8 g/dL Normal 2-4 Albumin/Globulin Ratio 1.5 Normal 1-3 Total Bilirubin 0.90 mg/dL Normal 0.2-1.0 Alkaline Phosphatase 49 U/L Normal 34-104 Alt 14 U/L Normal 7-52 Ast 23 U/L Normal 13-39 Egfr Non- 50.8 >60 Egfr 61.5 >60 3 Laboratory test 05/19/2019 [facility] Troponin-I (TnI) 0.01 ng/mL < 0.04 4 finding Blood Culture SEE RESULT BELOW 5 Lipid 05/06/2019 [facility] Cholesterol @ 136 mg/dL (0-200) [address] (607)- - Triglyceride @ 76 mg/dL (30-200) HDL Cholesterol @ 44 mg/dL (>40) 6 Chol/HDL Ratio 3.1 RATIO 7 LDL Chol (Calc) 77 mg/dL (<130) 8 CMP 05/06/2019 [facility] Sodium 136 mmol/L (136-145) [address] (607)- - Potassium 4.3 mmol/L (3.6-5.2) Chloride 103 mmol/L (100-108) Co2 29 mmol/L (22-31) Anion Gap 4 mmol/L Low (7-16) Urea Nitrogen 20 mg/dL (7-24) Creatinine 1.39 mg/dL High (0.80-1.30) BUN/Creat Ratio 14.4 RATIO (10.0-20.0) Glucose 96 mg/dL (70-99) Calcium 9.3 mg/dL (8.4-10.2) Total Protein 7.4 g/dL (6.4-8.2) Albumin 4.2 g/dL (3.2-4.5) Globulin 3.2 g/dL (2.7-4.3) Alb/Glob Ratio 1.3 RATIO Alkaline Phosphatase 59 U/L (45-117) Bilirubin,Total 0.7 mg/dL (0.0-1.0) Ast (Sgot) 41 U/L High (11-39) Alt (SGPT) 25 U/L (12-78) GFR 51 ml/min/1.73m2 Low (>59) GFR ( Amer) >60 ml/min/1.73m2 (>59) GFR Interpretation <SEE NOTE> 9 CBC With Diff 05/06/2019 [facility] WBC 3.0 10*3/uL Low (4.1-11.0) [address] (607)- - RBC 4.30 10*6/uL Low (4.60-6.10) HGB 13.3 g/dL Low (13.5-18.0) HCT 39.5 % Low (41.0-53.0) MCV 91.9 fL (80.0-95.0) MCH 30.9 pg (27.0-32.0) MCHC 33.6 g/dL (32.0-36.0) RDW 14.3 % (10.5-14.5) PLT 207 10*3/uL (150-450) MPV 8.4 fL (7.1-10.7) Neut % 50.4 % (35.0-75.0) Lymph % 26.8 % (16.0-52.0) Phillips % 21.4 % High (0.0-8.0) Eos % 0.6 % (0.0-5.0) Baso % 0.8 % (0.0-4.0) Neut # 1.5 10*3/uL Low (1.8-7.7) Lymph # 0.8 10*3/uL Low (1.2-4.8) Phillips # 0.6 10*3/uL (0.0-0.8) Eos # 0.0 10*3/uL (0.0-0.5) Baso # 0.0 10*3/uL (0.0-0.2) Hemoglobin A1c 05/06/2019 [facility] Hemoglobin A1c @ 5.1 % (4.0-6.0) 10 [address] (607)- - Est Average Glucose 100 mg/dL Laboratory test 05/06/2019 [facility] Magnesium 1.3 mg/dL Low (1.7-2.4 ) finding [address] (607)- - Vit D 1 25 Dihydroxy 74.6 11 Laboratory 05/06/2019 [facility] TSH,Ultrasensitive @ 0.850 (0.360- 4.170) test finding [address] mIU/L (607)- - 1 [facility] Severe Sepsis and Septic Shock Management Bundle Measure requires all lactic acids initially measuring >2.0 mmol/L be repeated. 2 Standard intensity warfarin therapeutic range: 2.0-3.0 High intensity warfarin therapeutic range: 2.5-3.5 3 Because ethnic data is not always readily [...] 15-29 5 Kidney failure <15 (or dialysis) 4 Troponin-I testing on Plasma Separator Tubes (PST) has a known false positive rate of 0.20-0.40%. All positive troponins reflex immediately to secondary confirmatory testing. Using the [employer] DxI 800 Access Immunoassay systems, the 99th percentile upper reference limit was demonstrated to be < 0.03 ng/mL. 5 SEE RESULT BELOW Name: BILLY BANDA : [address]: Yuki Hays MD Acct: [id number] Unit: [id number] AGE: 68 Location: ED Re05/19/19 SEX: M Status: DEP ER SPEC: [id number] GAVIN: 05/19/19 [facility] DR: Yuki Hays MD REQ: [id number] RECD: 05/19/19 STATUS:RES [facility] DR: Mariya Betancourt MD _ SOURCE: BLOOD,VENO SPDESC: ORDERED: Blood Cult Procedure Result Reported Site Aerobic Culture Bottle Preliminary 05/23/19- 0255 ML No Growth Day 4 Anaerobic Culture Bottle Final 05/24/19- 0254 ML No Growth Day 5 * ML - Main Lab . END OF REPORT DEPARTMENT OF PATHOLOGY, [address] [place] [address] Steve Gomez M.D. Director [facility] # [id number] 6 PER NCEP ATP III GUIDELINES: RESULTS LOWER THAN 40 MG/DL ARE SUGGESTIVE OF INCREASED RISK FOR CORONARY ARTERY DISEASE. RESULTS > OR = TO 60 MG/DL ARE CONSIDERED A NEGATIVE RISK FACTOR. 7 INTERPRETATION OF CHOL-HDL RATIO CHD RISK FEMALE MALE VERY HIGH >8.3 >14.3 HIGH 5.6- 8.3 6.7- 14.3 AVERAGE 3.7- 5.6 4.0- 6.7 BELOW AVERAGE 2.5- 3.7 2.7- 4.0 PROTECTED <2.5 <2.7 8 PER NCEP ATP III GUIDELINES: OPTIMAL < 100 NEAR OPTIMAL 100 - 129 BORDERLINE HIGH 130 - 159 HIGH 160 - 189 VERY HIGH > 189 9 NORMAL KIDNEY FUNCTION OR MILD DISEASE - GFR >OR= 60 CHRONIC KIDNEY DISEASE - GFR 15 - 59 RENAL FAILURE - GFR <15 Est. GFR calculation based on the MDRD study equation, which assumes a steady state for creatinine. Est. GFR should not be used for medication dosing. 10 Performed using [employer] immunoassay. Care must be taken when interpreting HbA1c results in patients with a hemoglobin variant or decreased erythrocyte lifespan. Values 5.7 - 6.4% suggest prediabetes. Values >=6.5% are diagnostic for diabetes. REFERENCE: DIABETES CARE 2018: 41(S13-S27). 11 Reference range: 19.9 to 79.3 Unit: pg/mL INTERPRETIVE INFORMATION: Vitamin D, 1,25-Dihydroxy This test is primarily indicated during patient evaluation for hypercalcemia and renal failure. A normal result does not rule out Vitamin D deficiency. The recommended test for diagnosing Vitamin D deficiency is Vitamin D 25-hydroxy. Performed by [facility], [address] [place] [id number] [email or web address], Michel Galeano MD, Lab. Director Procedures Date Code Description Status 09/17/2018 [id number] Colonoscopy Completed 07/06/2013 [id number] Colonoscopy Completed Medical Devices Description No Information Available Encounters Type Date Location Provider Dx Diagnosis Office Visit 08/04/2019 [facility] Mariya Betancourt, E78.2 Mixed hyperlipidemia 2:30p M.D. E11.65 Type 2 diabetes mellitus with hyperglycemia [...] Localized edema G47.00 Insomnia, unspecified Office Visit 05/06/2019 2:00p [facility] Nico Menezes E78.2 Mixed hyperlipidemia N.P. E11.65 Type 2 diabetes mellitus with [...] Encounter for immunization Office Visit 02/08/2019 1:45p [facility] Mariya Betancourt E78.2 Mixed hyperlipidemia [place] [...] shoulder R60.0 Localized edema G47.00 Insomnia, unspecified Assessments Date Code Description Provider 08/04/2019 E78.2 Mixed hyperlipidemia Mariya Betancourt M.D. 08/04/2019 E11.65 Type 2 diabetes mellitus with hyperglycemia Mariya Betancourt M.D. 08/04/2019 I10 Essential (primary) hypertension Mariya Betancourt M.D. 08/04/2019 E55.9 Vitamin D deficiency, unspecified Mariya Betancourt M.D. 08/04/2019 J44.9 Chronic obstructive pulmonary disease, Mariya Betancourt M.D. unspecified 08/04/2019 F10.21 Alcohol dependence, in remission Mariya Betancourt M.D. 08/04/2019 K70.30 Alcoholic cirrhosis of liver without ascites Mariya Betancourt M.D. 08/04/2019 R00.1 Bradycardia, unspecified Mariya Betancourt M.D. 08/04/2019 K21.0 Gastro-esophageal reflux disease with Mariya Betancourt M.D. esophagitis 08/04/2019 N64.4 Mastodynia Mariya Betancourt M.D. 08/04/2019 E29.1 Testicular hypofunction Mariya Betancourt M.D. 08/04/2019 F17.210 Nicotine dependence, cigarettes, Mariya Betancourt M.D. uncomplicated 08/04/2019 R00.2 Palpitations Mariya Betancourt M.D. 08/04/2019 N62 Hypertrophy of breast Mariya Betancourt M.D. 08/04/2019 F41.9 Anxiety disorder, unspecified Mariya Betancourt M.D. 08/04/2019 L72.3 Sebaceous cyst Mariya Betancourt M.D. 08/04/2019 F33.9 Major depressive disorder, recurrent, Mariya Betancourt M.D. unspecified 08/04/2019 D52.0 Dietary folate deficiency anemia Mariya Betancourt M.D. 08/04/2019 H91.93 Unspecified hearing loss, bilateral Mariya Betancourt M.D. 08/04/2019 E83.42 Hypomagnesemia Mariya Betancourt M.D. 08/04/2019 K59.00 Constipation, unspecified Mariya Betancourt M.D. 08/04/2019 M25.511 Pain in right shoulder Mariya Betancourt M.D. 08/04/2019 R60.0 Localized edema Mariya Betancourt M.D. 08/04/2019 G47.00 Insomnia, unspecified Mariya Betancourt M.D. 05/06/2019 E78.2 Mixed hyperlipidemia Nico Menezes N.P. 05/06/2019 E11.65 Type 2 diabetes mellitus with hyperglycemia Nico Menezes N.P. 05/06/2019 I10 Essential (primary) hypertension Nico Menezes N.PJessica 05/06/2019 E55.9 Vitamin D deficiency, unspecified Nico Menezes N.P. 05/06/2019 J44.9 Chronic obstructive pulmonary disease, Nico Menezes N.P. unspecified 05/06/2019 F10.21 Alcohol dependence, in remission Nico Menezes N.PJessica 05/06/2019 K70.30 Alcoholic cirrhosis of liver without ascites Nico Menezes N.P. 05/06/2019 R00.1 Bradycardia, unspecified Nico Menezes N.P. 05/06/2019 K21.0 Gastro-esophageal reflux disease with Nico Menezes N.PJessica esophagitis 05/06/2019 N64.4 Mastodynia Nico Menezes N.P. 05/06/2019 E29.1 Testicular hypofunction Nico Menezes N.PJessica 05/06/2019 F17.210 Nicotine dependence, cigarettes, Nico Menezes N.PJessica uncomplicated 05/06/2019 R00.2 Palpitations Nico Menezes N.PJessica 05/06/2019 N62 Hypertrophy of breast Nico Menezes N.P. 05/06/2019 F41.9 Anxiety disorder, unspecified Nico Menezes N.P. 05/06/2019 L72.3 Sebaceous cyst Nico Menezes N.PJessica 05/06/2019 F33.9 Major depressive disorder, recurrent, Nico Menezes, N.P. unspecified 05/06/2019 D52.0 Dietary folate deficiency anemia Nico Menezes, N.P. 05/06/2019 H91.93 Unspecified hearing loss, bilateral Nico Menezes N.P. 05/06/2019 E83.42 Hypomagnesemia Nico Menezes N.P. 05/06/2019 K59.00 Constipation, unspecified Nico Menezes N.P. 05/06/2019 M25.511 Pain in right shoulder Nico Menezes N.P. 05/06/2019 R60.0 Localized edema Nico Menezes N.P. 05/06/2019 G47.00 Insomnia, unspecified Nico Menezes N.P. 05/06/2019 Z23 Encounter for immunization Nico Menezes N.P. 02/08/2019 E78.2 Mixed hyperlipidemia Mariya Betancourt [...] 02/08/2019 G47.00 Insomnia, unspecified Mariya Betancourt M.D. Plan of Treatment 08/04/2019 - Mariya Betancourt M.D.E78.2 Mixed hyperlipidemiaComments:DIET REVIEWED CONTINUE DIETWT LOSSF/U LAB FBWE11.65 Type 2 diabetes mellitus with hyperglycemiaComments:DIET REVIEWED CONTINUE DIETWT LOSSFS qAC AND HS PRN F/U FBWI10 Essential (primary) hypertensionComments:CHECK BP TIW ( PRN)F/U LABDIET AND FLUID COUNSELING LOW SODIUM DIETWT LOSSF/U LABSMOKING YYBVKVSWNU05.9 Vitamin D deficiency, unspecifiedNew Medication:Vitamin D (Ergocalciferol) 1.25 mg (08736 Ut) - 1 cap by mouth every weekComments:INCREASE EXPOSURE TO SUNREVIEW OF DIETJ44.9 Chronic obstructive pulmonary disease, unspecifiedComments:INCREASE PO FLUIDRESTSMOKING UOWMMBBREN38.21 Alcohol dependence, in remissionComments:OBSERVE COUNCELLING AND REASSURANCEF/U WITH MHC /AAA PRNK70.30 Alcoholic cirrhosis of liver without ascitesComments: ASYMPTOMATIC AND STABLE AVOID ETOH ABUSE F/ULABR00.1 Bradycardia, unspecifiedComments:REDUCED ATENOLOL TO 1/2 TAB BID WITH SOME IMPROVMENT IN HR AND BP STILL STABLE AND REEVALUATE IN 3 ARHWGLP45.0 Gastro-esophageal reflux disease with esophagitisComments:AVOID CAFFEINE, ETOH AND SPICY FOODSTUMS OR MYLANTA PRN CALL WITH PROBLEMS OR CONCERNSSMOKING RCHQWSDPTS83.4 MastodyniaComments:WARM COMPRESS TYLENOL OR MOTRIN PRNRTC FOR F/UE29.1 Testicular hypofunctionComments:COUNCELLING AND DLRQNBXTOKUV16.210 Nicotine dependence, cigarettes, uncomplicatedComments:SMOKING CESSATION COUNCELLING MORE THAN 4 MINUTES SPENT DISSUCUSING SMOKING CESSATION EUQLIHT22.2 PalpitationsComments:[id number] Hypertrophy of breastComments: VWJGJQQP15.9 Anxiety disorder, unspecifiedComments:COUNCELLING AND REASSURANCE RELAXATION TECHNIQUES DISCUSSEDCOUNSELED RE: STRESSORS IN LIFE AVOID ALLENERGY/ HIGH CAFFEINE HXJELFS92.3 Sebaceous cystComments:RDONHTDQ75.9 Major depressive disorder, recurrent, unspecifiedComments:COUNCELLING AND REASSURANCE RELAXATION TECHNIQUES DISCUSSED COUNSELED RE: STRESSORS IN LIFED52.0 Dietary folate deficiency anemiaComments:COUNSELED RE DIET/ AVOID ALCOHOL USEH91.93 Unspecified hearing loss, bilateralComments:OBSERVE SMOKING ERBPWJQCLT95.42 HypomagnesemiaComments:F/U LABK59.00 Constipation, unspecifiedComments:MOM OR MIRALAX PRNHIGH FIBER DIETINCREASE PO MQSDFR62.511 Pain in right shoulderComments:EXERCISE/HEAT /MESSAGE AVOID HEAVY LIFTINGTYLENOL OR MOTRIN PRN DUR MNDGLQLY24.0 Localized edemaComments:ELEVATE LE PRNELASTIC STOCKING / BALJINDER WRAP PRNF/U LABG47.00 Insomnia, unspecifiedComments:COUNCELLING AND REASSURANCE RELAXATION TECHNIQUES DISCUSSED COUNSELED RE: STRESSORS IN LIFE TYLENOLPM OR MOTRIN PM PRN DUR CHECKED Functional Status Functional Condition Comment Date Status Glasses Active Bifocal glasses Active Mental Status Description No Information Available Referrals Description No Information Available
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
[2019-08-10 16:49] LABS: ABS Eosinophils 0.1 10^3/ul (0-0.6); ABS Lymphocytes 1.6 10^3/ul (1.0-4.8); ABS Monocytes 0.4 10^3/ul (0-0.8); ABS Neutrophils 3.5 10^3/ul (1.5-7.7); Eosinophil % 0.9 %; Hematocrit 42 % (42-52); Hemoglobin 14.3 g/dL (14.0-18.0); Lymphocyte % 29.5 %; Mean Corpuscular HGB Conc 34 g/dL (31-36); Mean Corpuscular Hemoglobin 31 pg (27-31); Mean Corpuscular Volume 93 fL (80-94); Mean Platelet Volume 7.7 fL (7.4-10.4); Platelet Count 274 10^3/uL (150-450); Red Blood Count 4.54 10^6 /uL (4.18-5.48); Red Cell Distribution Width 14 % (10-15); White Blood Count 5.6 10^3/uL (3.5-10.8)
[2019-08-10 16:51] LABS: Urine Appearance Clear; Urine Bilirubin Negative (Negative); Urine Blood Negative (Negative); Urine Color Straw; Urine Glucose Negative (Negative); Urine Ketones Negative (Negative); Urine Nitrite Negative (Negative); Urine Protein Negative (Negative); Urine Specific Gravity 1.002 (1.010-1.030); Urine Urobilinogen Negative (Negative)
[2019-08-10 17:15] LABS: ALT 13 U/L (7-52); AST 29 U/L (13-39); Albumin 4.7 g/dL (3.2-5.2); Albumin/Globulin Ratio 1.5 (1-3); Alkaline Phosphatase 68 U/L (34-104); Anion Gap 9 mmol/L (2-11); BUN/Creatinine Ratio 9.2 (8-20); Blood Urea Nitrogen 13 mg/dL (6-24); CO2 Carbon Dioxide 25 mmol/L (22-32); Calcium 10.1 mg/dL (8.6-10.3); Chloride 103 mmol/L (101-111); EGFR Non-African American 49.6 (>60); Globulin 3.2 g/dL (2-4); Glucose 85 mg/dL (70-100); Potassium 3.8 mmol/L (3.5-5.0); Sodium 137 mmol/L (135-145); Total Protein 7.9 g/dL (6.4-8.9)
[2019-08-10 17:17] LABS: Urine Benzodiazepine Screen None Detected (None Detect); Urine Opiates Screen None Detected (None Detect)
[2019-08-10 17:17] LABS: Acetaminophen < 15 mcg/mL; Alcohol 128 mg/dL (<10); Salicylate < 2.50 mg/dL (<30)
[2019-08-10] MEDS ORDERED: diPHENhydraMINE IV* 50 MG/ML 1 ml VIAL (BENADRYL) ONE (17:30)
[2019-08-10] MEDS ORDERED: Haloperidol INJ IV/IM* 5 MG/ML AMP ONE (17:30)
[2019-08-10] MEDS ORDERED: LORazepam INJ* 2 MG/ML 1 ML VIAL ONE ×2 (17:30→17:46)
[2019-08-10] MEDS ORDERED: Lorazepam PYXIS KEY PRN (18:00)
[2019-08-10] MEDS ORDERED: Haloperidol INJ IV/IM* 5 MG/ML AMP IM ONE (18:00)
[2019-08-10] MEDS ORDERED: LORazepam INJ* 2 MG/ML 1 ML VIAL IM ONE (18:00)
[2019-08-10] MEDS ORDERED: diPHENhydraMINE IV* 50 MG/ML 1 ml VIAL (BENADRYL) IM ONE (18:00)
[2019-08-10 20:00] VITALS: BP 123/75
== END 2019-08-10 20:57 | disposition home or self-care (01) ==
LOC: ED 16:03
DX: F10.10 Alcohol abuse, uncomplicated (principal); I10 Essential (primary) hypertension; E03.9 Hypothyroidism, unspecified; E78.00 Pure hypercholesterolemia, unspecified; K21.9 Gastro-esophageal reflux disease without esophagitis; F32.9 Major depressive disorder, single episode, unspecified; F17.210 Nicotine dependence, cigarettes, uncomplicated; Z79.899 Other long term (current) drug therapy
CPT/HCPCS: 36415; 80053; 80307; 80320; 80329; 81003; 85025; 96374; 96375; 99283; G0480; J1200; J1630; J2060

== ENCOUNTER 2024-05-16 10:52 | Observation (INO) ==
[2024-05-16 11:28] LABS: ABS Basophils 0.1 10^3/uL (0.0-0.1); ABS Eosinophils 0.2 10^3/uL (0.0-0.5); ABS Lymphocytes 0.6 10^3/uL (1.0-4.8); ABS Monocytes 0.6 10^3/uL (0.0-1.1); ABS Neutrophils 5.6 10^3/uL (1.5-7.6); Eosinophil % 2.8 %; Hematocrit 44.8 % (38-53); Hemoglobin 15.3 g/dL (13.2-16.3); Lymphocyte % 8.6 %; Mean Corpuscular Hemoglobin 33.5 pg (27-33); Mean Corpuscular Hgb Conc 34.1 g/dL (31-36); Mean Corpuscular Volume 98.3 fL (80-97); Mean Platelet Volume 7.6 fL (7.5-11.2); Platelet Count 314 10^3/uL (150-450); Red Blood Count 4.56 10^6/uL (4.06-5.63); Red Cell Distribution Width 13.6 % (12-17); White Blood Count 7.1 10^3/uL (3.6-10.2)
[2024-05-16 11:32] LABS: INR 1.66 (0.85-1.14)
[2024-05-16 12:03] LABS: Calcium 8.2 mg/dL (8.6-10.3); Creatinine, Serum 0.97 mg/dL (0.67-1.17); Potassium 4.1 mmol/L (3.5-5.0); eGFR CKD-EPI 82.4 (>60)
[2024-05-16 12:06] LABS: Albumin 2.9 g/dL (3.2-5.2); Albumin/Globulin Ratio 0.8 (1-3); Globulin 3.6 g/dL (2-4); Magnesium 0.8 mg/dL (1.9-2.7); Total Bilirubin 1.7 mg/dL (0.2-1.0); Total Protein 6.5 g/dL (6.4-8.9)
[2024-05-16] MEDS: Magnesium Sulfate 2 gm BAG 2 GM/50 ML BAG IVPB ONE ×3 (12:24→18:21)
[2024-05-16 12:53] LABS: High Sensitivity Troponin 1 Hr 11 pg/mL (<20)
[2024-05-16] MEDS: Iohexol 350 (CONTRAST) 500 ML MDV IV ONE (13:40)
[2024-05-16] MEDS ORDERED: Sulfur Hexaflouride MICROSPHR 25 MG VIAL IV PRN (16:08)
[2024-05-16] MEDS: Pantoprazole VIAL 40 MG VIAL IV SCH (18:20)
[2024-05-16] MEDS: Aspirin EC 81 mg TAB.EC (enteric coated) PO SCH (18:21)
[2024-05-16] MEDS: Multivitamins/Minerals TAB PO SCH (18:21)
[2024-05-16] MEDS: Enoxaparin 40 MG/0.4 ML SYR SUBCUT SCH (20:15)
[2024-05-16] MEDS: Thiamine 100 MG/ML 2 ml VIAL (200 mg) IM ONE (20:17)
[2024-05-16] MEDS: [UNRECOGNIZED DRUG - REMARK] PO SCH (20:22)
[2024-05-16 20:59] LABS: Magnesium 2.4 mg/dL (1.9-2.7)
[2024-05-16 21:13] LABS: TSH Ultra Thyroid Stim Horm 1.17 mcIU/mL (0.34-5.60)
[2024-05-16 21:24] LABS: Folate 13.49 ng/mL (5.90-24.80)
[2024-05-16] MEDS ORDERED: Magnesium Sulfate 2 gm BAG 2 GM/50 ML BAG IVPB ONE (21:44)
[2024-05-17 06:30] LABS: Mean Corpuscular Hemoglobin 33.5 pg (27-33); Mean Corpuscular Hgb Conc 34.1 g/dL (31-36); Mean Corpuscular Volume 98.3 fL (80-97); Mean Platelet Volume 7.5 fL (7.5-11.2); Platelet Count 271 10^3/uL (150-450); Red Blood Count 4.17 10^6/uL (4.06-5.63); Red Cell Distribution Width 13.5 % (12-17); White Blood Count 5.1 10^3/uL (3.6-10.2)
[2024-05-17 06:51] LABS: Albumin 2.7 g/dL (3.2-5.2); Albumin/Globulin Ratio 0.8 (1-3); Calcium 8.1 mg/dL (8.6-10.3); Creatinine, Serum 1.01 mg/dL (0.67-1.17); Globulin 3.2 g/dL (2-4); Magnesium 1.8 mg/dL (1.9-2.7); Potassium 4.5 mmol/L (3.5-5.0); Total Bilirubin 1.2 mg/dL (0.2-1.0); Total Protein 5.9 g/dL (6.4-8.9); eGFR CKD-EPI 78.5 (>60)
[2024-05-17 08:54] LABS: C Reactive Protein 49.93 mg/L (<8.01)
[2024-05-17] MEDS ORDERED: [UNRECOGNIZED DRUG - REMARK] PO SCH (09:00)
[2024-05-17] MEDS: Magnesium Sulfate 2 gm BAG 2 GM/50 ML BAG IVPB ONE (09:57)
[2024-05-17] MEDS: [UNRECOGNIZED DRUG - REMARK] PO SCH (12:24)
[2024-05-17] MEDS: [UNRECOGNIZED DRUG - REMARK] PO SCH (12:24)
[2024-05-17 13:47] VITALS: BP 134/73
[2024-05-17 17:15] LABS: Erythrocyte Sed Rate 30 mm/Hr (0-19)
[2024-05-20 17:32] LABS: RNP IgG Antibodies <0.2 U; Scl 70 Ab, IgG, S <0.2 U
[2024-05-20 17:35] LABS: Cyclic Citrullinated Pept IgG <15.6 U
[2024-05-23 12:04] LABS: C-ANCA Negative (Negative); P-ANCA Positive (Negative)
== END 2024-05-17 17:46 | disposition home or self-care (01) ==
LOC: ED 10:52 → EDHOLD 10:52 → MED 16:25
PROVIDERS: ADMIT Internal Medicine; ATTEND Internal Medicine

== ENCOUNTER 2024-05-27 19:41 | Inpatient (IN) ==
[2024-05-28] MEDS: Furosemide 40 mg/4 ml IV VIAL IV SLOW PU ONE (04:22)
[2024-05-28 04:24] LABS: ABS Basophils 0.1 10^3/uL (0.0-0.1); ABS Eosinophils 0.2 10^3/uL (0.0-0.5); ABS Lymphocytes 0.9 10^3/uL (1.0-4.8); ABS Monocytes 1.2 10^3/uL (0.0-1.1); ABS Neutrophils 10.4 10^3/uL (1.5-7.6); Eosinophil % 1.7 %; Hemoglobin 13.2 g/dL (13.2-16.3); Lymphocyte % 7.1 %; Mean Corpuscular Hgb Conc 33.8 g/dL (31-36); Mean Corpuscular Volume 97.6 fL (80-97); Mean Platelet Volume 7.6 fL (7.5-11.2); Platelet Count 299 10^3/uL (150-450); Red Blood Count 3.99 10^6/uL (4.06-5.63); Red Cell Distribution Width 13.8 % (12-17); White Blood Count 12.7 10^3/uL (3.6-10.2)
[2024-05-28 04:58] LABS: Albumin 2.7 g/dL (3.2-5.2); Calcium 8.7 mg/dL (8.6-10.3); Creatinine, Serum 0.88 mg/dL (0.67-1.17); Globulin 2.8 g/dL (2-4); Magnesium 1.4 mg/dL (1.9-2.7); Potassium 4.2 mmol/L (3.5-5.0); Total Bilirubin 1.6 mg/dL (0.2-1.0); Total Protein 5.5 g/dL (6.4-8.9); eGFR CKD-EPI 90.8 (>60)
[2024-05-28] MEDS: methylPREDNISolone SOD SUCC 40 mg/ml 1 ml VIAL IV ONE (05:12)
[2024-05-28] MEDS: Magnesium Sulf 4 GM/100 ML IV 4,000 MG/100 ML BAG IVPB ONE (05:17)
[2024-05-28] MEDS ORDERED: Albuterol 2.5mg/3 ml (0.083%) NEB.SOLN INH PRN (05:31)
[2024-05-28] MEDS: Enoxaparin 40 MG/0.4 ML SYR SUBCUT SCH (06:04)
[2024-05-28] MEDS: Albuterol/Ipratropium NEB.SOL (2.5/0.5 MG) 3 ML NEB.SOLN INH PRN (08:35)
[2024-05-28] MEDS: FERROUS SULFATE 27 MG PO SCH (09:04)
[2024-05-28] MEDS: IRON PO SCH (09:04)
[2024-05-28] MEDS: methylPREDNISolone SOD SUCC 40 mg/ml 1 ml VIAL IV SCH (10:43)
[2024-05-28] MEDS: Mometasone/Formoter 100/5 MDI INH SCH (15:44)
[2024-05-29] MEDS ORDERED: methylPREDNISolone SOD SUCC 40 mg/ml 1 ml VIAL IV SCH (05:00)
[2024-05-29 05:28] LABS: ABS Lymphocytes 0.6 10^3/uL (1.0-4.8); ABS Monocytes 0.5 10^3/uL (0.0-1.1); ABS Neutrophils 14.3 10^3/uL (1.5-7.6); Hematocrit 38.2 % (38-53); Mean Corpuscular Hemoglobin 33.1 pg (27-33); Mean Corpuscular Volume 97.4 fL (80-97); Mean Platelet Volume 7.8 fL (7.5-11.2); Platelet Count 318 10^3/uL (150-450); Red Blood Count 3.92 10^6/uL (4.06-5.63); Red Cell Distribution Width 13.8 % (12-17); White Blood Count 15.5 10^3/uL (3.6-10.2)
[2024-05-29 05:59] LABS: Albumin 2.8 g/dL (3.2-5.2); Albumin/Globulin Ratio 0.9 (1-3); Calcium 9.2 mg/dL (8.6-10.3); Creatinine, Serum 0.77 mg/dL (0.67-1.17); Magnesium 1.8 mg/dL (1.9-2.7); Potassium 4.6 mmol/L (3.5-5.0); Total Bilirubin 0.8 mg/dL (0.2-1.0); Total Protein 5.8 g/dL (6.4-8.9); eGFR CKD-EPI 94.5 (>60)
[2024-05-29] MEDS: Magnesium Sulfate 2 gm BAG 2 GM/50 ML BAG IVPB ONE (11:06)
[2024-05-29] MEDS: hydrALAZINE 20 mg/ml 1 ML Vial IV IV SLOW PU PRN (16:47)
[2024-05-30 05:34] LABS: ABS Basophils 0.1 10^3/uL (0.0-0.1); ABS Lymphocytes 0.6 10^3/uL (1.0-4.8); ABS Monocytes 0.6 10^3/uL (0.0-1.1); ABS Neutrophils 14.9 10^3/uL (1.5-7.6); Eosinophil % 0.1 %; Hematocrit 37.5 % (38-53); Hemoglobin 12.6 g/dL (13.2-16.3); Lymphocyte % 3.5 %; Mean Corpuscular Hgb Conc 33.5 g/dL (31-36); Mean Corpuscular Volume 98.6 fL (80-97); Mean Platelet Volume 7.6 fL (7.5-11.2); Platelet Count 318 10^3/uL (150-450); Red Blood Count 3.81 10^6/uL (4.06-5.63); Red Cell Distribution Width 13.9 % (12-17); White Blood Count 16.1 10^3/uL (3.6-10.2)
[2024-05-30 06:17] LABS: Calcium 8.9 mg/dL (8.6-10.3); Creatinine, Serum 0.7 mg/dL (0.67-1.17); Magnesium 1.7 mg/dL (1.9-2.7); Phosphorus 3.3 mg/dL (2.5-5.0); Potassium 4.8 mmol/L (3.5-5.0); eGFR CKD-EPI 97.3 (>60)
[2024-05-30] MEDS: Magnesium Sulf 4 GM/100 ML IV 4,000 MG/100 ML BAG IVPB ONE (09:21)
[2024-05-30] MEDS: Acetylcysteine 600mgCAP(RENAL) PO SCH (12:33)
[2024-05-30] MEDS: CMC:Selenium 200 mcg TAB (NF) PO SCH (12:34)
[2024-05-31 04:55] LABS: ABS Lymphocytes 0.6 10^3/uL (1.0-4.8); ABS Monocytes 0.6 10^3/uL (0.0-1.1); ABS Neutrophils 11.2 10^3/uL (1.5-7.6); Eosinophil % 0.1 %; Hematocrit 38.2 % (38-53); Hemoglobin 12.8 g/dL (13.2-16.3); Mean Corpuscular Hgb Conc 33.6 g/dL (31-36); Mean Corpuscular Volume 98.3 fL (80-97); Mean Platelet Volume 7.6 fL (7.5-11.2); Platelet Count 316 10^3/uL (150-450); Red Blood Count 3.89 10^6/uL (4.06-5.63); White Blood Count 12.5 10^3/uL (3.6-10.2)
[2024-05-31 05:12] LABS: Calcium 8.6 mg/dL (8.6-10.3); Creatinine, Serum 0.74 mg/dL (0.67-1.17); Potassium 4.9 mmol/L (3.5-5.0); eGFR CKD-EPI 95.7 (>60)
[2024-05-31] MEDS: Morphine 4 MG/ML VIAL (1 ml) ONE (12:39)
[2024-06-03] MEDS: Famotidine IV 10 MG/ML 2 ml VIAL (20 mg) IV SLOW PU ONE (13:20)
[2024-06-03] MEDS ORDERED: LORazepam 2 mg VIAL 1 ml IV PUSH PRN (14:49)
[2024-06-03] MEDS ORDERED: Lorazepam PYXIS KEY PRN ×2 (14:49→15:30)
[2024-06-03 14:53] VITALS: BP 162/74
[2024-06-03] MEDS: Morphine 10 MG/ML VIAL (1 mL) 100 MG in NS 0.9% 100 ml BAG 90 ML IV SCH (15:22)
[2024-06-03] MEDS: Morphine 10 MG/ML VIAL (1 ml) IV ONE ×3 (15:25→15:49)
[2024-06-03] MEDS: LORazepam 2 mg VIAL 1 ml ONE (15:34)
[2024-06-03] MEDS: LORazepam 2 mg VIAL 1 ml IV PUSH PRN (15:34)
[2024-06-03] MEDS: Morphine 10 MG/ML VIAL (1 ml) ONE ×2 (16:32→16:33)
== END 2024-06-03 16:45 | disposition expired | DRG 196 ==
LOC: ED 19:41 → EDHOLD 19:41 → ICU 05-28 09:56
PROVIDERS: ADMIT Student in an Organized Health Care Education/Training Program; ATTEND Internal Medicine Critical Care Medicine